=== PATIENT | male | born 1940 | race Two or more races ===

== ENCOUNTER → 2024-07-07 | Outpatient (CLI) | payer MEDICARE, OTHER, SELFPAY ==
[2024-07-07 11:28] LABS: Basophils % (Auto) 1 % (0-2.5); Eosinophils # (Auto) 0.2 Thou/mm3 (0.0-0.5); Eosinophils % (Auto) 4 % (0-10); Hematocrit 37.2 % (41.0-53.0); Hemoglobin 13.3 g/dL (13.5-16.0); Immature Granulocytes % (Auto) 1 % (0-0); Immature Granulocytes Auto 0.04 Thou/mm3 (0.00-0.00); Lymphocytes # (Auto) 0.9 Thou/mm3 (1.0-4.8); Lymphocytes % (Auto) 15 % (10-50); Mean Corpuscular HGB Conc 35.8 g/dl (31.0-37.0); Mean Corpuscular Hemoglobin 30.6 pg (25.0-35.0); Mean Corpuscular Volume 86 fL (80-100); Monocytes # (Auto) 0.5 Thou/mm3 (0.0-0.8); Monocytes % (Auto) 9 % (0-12); Neutrophils # (Auto) 3.9 Thou/mm3 (1.8-7.7); Neutrophils % (Auto) 71 % (37-80); Nucleated Red Blood Cell % 0 /100 WBC (0); Platelet Count 145 Thou/mm3 (140-440); RDW Standard Deviation 40.9 fL (35.1-43.9); Red Blood Count 4.34 Miln/mm3 (4.50-5.90); White Blood Count 5.5 Thou/mm3 (3.8-10.6)
[2024-07-07 11:37] LABS: Glucose Estimated Average 143 mg/dL (80-131); Hemoglobin A1C 6.6 % Hgb (4.8-6.0)
[2024-07-07 11:41] LABS: Albumin, Serum 4.2 gm/dL (3.4-4.8); Anion Gap 7 (7-16); BUN/Creatinine Ratio 19 Ratio (12-20); Blood Urea Nitrogen 13 mg/dL (9-23); Calcium 9.2 mg/dL (8.3-10.6); Calcium (Corrected) 9.2 mg/dL (8.5-10.1); Carbon Dioxide 31.3 mMol/L (20.0-31.0); Chloride 106 mMol/L (98-107); Cholesterol 112 mg/dL (132-200); Creatinine (Component) 0.7 mg/dL (0.6-1.3); Glucose 123 mg/dL (74-106); HDL Cholesterol 37 mg/dL (40-60); LDL Cholesterol,Calculated 57 mg/dL (0-130); Osmolality,Calculated 287 (275-295); Potassium 3.3 mMol/L (3.4-5.1); Sodium 144 mMol/L (136-145); Triglycerides 89 mg/dL (30-150); eGFR > 60 See Note
[2024-07-07 15:06] LABS: Collection Type, Urine Clean Catch
[2024-07-07 15:48] LABS: Creatinine MALB Rnd Ur 97 mg/dL (30-125); Microalbumin Creat Ratio 85 mg/gCrea (<30); Microalbumin, Random Urine 82 mg/L (0-300)
[2024-07-07 15:52] LABS: Bilirubin,Urine Negative (Negative); Blood,Urine Negative (Negative); Clarity,Urine Clear (Clear/Hazy); Color,Urine Yellow (Lt Yel-Yel); Glucose, Urine Negative (Negative); Ketones,Urine Negative (Negative); Leukocyte Esterase,Urine Negative (Negative); Nitrite,Urine Negative (Negative); Protein,Urine 1+ (Neg - Trace); RBC,Urine 3 /hpf (0-3); Specific Gravity,Urine 1.016 (1.001-1.035); Squamous Epithelial Cell,Urine 2 /hpf (0-5); WBC,Urine 2 /hpf (0-5)
== END | disposition home or self-care (01) ==
PROVIDERS: PCP Internal Medicine; Referring Provider Internal Medicine; Visit Provider Internal Medicine
DX: E11.9 Type 2 diabetes mellitus without complications (principal); I10 Essential (primary) hypertension; E78.5 Hyperlipidemia, unspecified
CPT/HCPCS: 36415; 80061; 80069; 81001; 82043; 82570; 83036; 85025

== ENCOUNTER 2024-09-07 08:34 | Emergency (ER) | payer MEDICARE, OTHER, SELFPAY ==
[2024-09-07 08:35] VITALS: BMI 25.8
[2024-09-07 08:44] VITALS: BP 103/65; PULSE 54; RESP 16; TEMP 36.7; O2SAT 94; BMI 25.8
--- NOTE | 2024-09-07 08:51 | XR_ITS ---
Examination: CT abdomen and pelvis without contrast. Coronal 3-D reconstructions. Sagittal 2-D reconstructions. Date and time of exam:September 07, 2024 0906 hours Comparison October 21, 2009 INDICATIONS: Burning abdominal pain with urination today CTDI: vol (mGy): 8.01 DLP: (mGycm): 500 Technique: Axial images of the abdomen have been obtained, 3 mm slice thickness Intravenous contrast material has not been administered. Low dose protocols were performed. One or more of the following dose reduction techniques were used; automated exposure control, adjustment of the mA and/or KV according to patient size, use of iterative reconstruction technique. Findings: No focal liver or splenic lesions No gallstones No pancreatic or adrenal mass Minimal perinephric stranding No renal or ureteral calculi, no hydronephrosis Normal appendix No bowel obstruction Colonic diverticulosis, no diverticulitis No bladder mass or bladder calculi Transverse prostate dimension 3.8 cm Small fat-containing inguinal hernias IMPRESSION: Minimal perinephric stranding, consider urinary tract infection Mild bilateral renal parenchymal scar formation No renal or ureteral calculi, no hydronephrosis Normal appendix No bladder mass or bladder calculi
--- NOTE | 2024-09-07 08:51 | PD.EDRME ---
Rapid Medical Screening Exam RME Arrival date/time: 09/07/24 08:34 84-year-old male presents to the emergency department today complaints of dysuria Chief Complaint: Urogenital-Male Vital signs: Vital Signs Temperature 98.0 F 09/07/24 08:44 Pulse Rate 54 L 09/07/24 08:44 Respiratory Rate 16 09/07/24 08:44 Blood Pressure 103/65 09/07/24 08:44 Pulse Oximetry (%) 94 L 09/07/24 08:44 Oxygen Delivery Method Room Air 09/07/24 08:44
[2024-09-07 09:39] LABS: Basophils % (Auto) 0 % (0-2.5); Eosinophils # (Auto) 0.1 Thou/mm3 (0.0-0.5); Eosinophils % (Auto) 1 % (0-10); Hematocrit 37.6 % (41.0-53.0); Hemoglobin 13.4 g/dL (13.5-16.0); Immature Granulocytes % (Auto) 0 % (0-0); Immature Granulocytes Auto 0.04 Thou/mm3 (0.00-0.00); Lymphocytes # (Auto) 0.7 Thou/mm3 (1.0-4.8); Lymphocytes % (Auto) 7 % (10-50); Mean Corpuscular HGB Conc 35.6 g/dl (31.0-37.0); Mean Corpuscular Hemoglobin 30.9 pg (25.0-35.0); Mean Corpuscular Volume 87 fL (80-100); Monocytes # (Auto) 0.6 Thou/mm3 (0.0-0.8); Monocytes % (Auto) 7 % (0-12); Neutrophils # (Auto) 7.9 Thou/mm3 (1.8-7.7); Neutrophils % (Auto) 85 % (37-80); Nucleated Red Blood Cell % 0 /100 WBC (0); Platelet Count 135 Thou/mm3 (140-440); RDW Standard Deviation 41.1 fL (35.1-43.9); Red Blood Count 4.34 Miln/mm3 (4.50-5.90); White Blood Count 9.4 Thou/mm3 (3.8-10.6)
[2024-09-07 10:11] LABS: Bacteria,Urine 4+; Bilirubin,Urine Negative (Negative); Blood,Urine 3+ (Negative); Collection Type, Urine Clean Catch; Glucose, Urine Negative (Negative); Ketones,Urine Negative (Negative); Leukocyte Esterase,Urine Positive (Negative); Nitrite,Urine Negative (Negative); Protein,Urine 2+ (Neg - Trace); RBC,Urine 137 /hpf (0-3); Specific Gravity,Urine 1.024 (1.001-1.035); Squamous Epithelial Cell,Urine 5 /hpf (0-5); WBC,Urine 1346 /hpf (0-5)
[2024-09-07 10:15] LABS: Alanine Aminotransferase 15 U/L (10-49); Albumin, Serum 4.1 gm/dL (3.4-4.8); Albumin/Globulin Ratio 2.2 (1.2-2.2); Alkaline Phosphatase 137 U/L (46-116); Anion Gap 9 (7-16); Aspartate Amino Transferase < 8 U/L (0-34); BUN/Creatinine Ratio 15 Ratio (12-20); Bilirubin,Total 2.1 mg/dL (0.3-1.2); Blood Urea Nitrogen 12 mg/dL (9-23); Calcium 9.1 mg/dL (8.3-10.6); Calcium (Corrected) 9.1 mg/dL (8.5-10.1); Carbon Dioxide 29.9 mMol/L (20.0-31.0); Chloride 105 mMol/L (98-107); Creatinine (Component) 0.8 mg/dL (0.6-1.3); Globulin 1.9 gm/dL (2.3-3.5); Glucose 144 mg/dL (74-106); Lipase 26 U/L (12-53); Osmolality,Calculated 289 (275-295); Potassium 3.3 mMol/L (3.4-5.1); Sodium 144 mMol/L (136-145); eGFR > 60 See Note
[2024-09-07 10:16] LABS: Clarity,Urine Turbid (Clear/Hazy); Color,Urine Amber (Lt Yel-Yel); Culture Indicated,Urine Yes
[2024-09-07 11:38] VITALS: BP 107/58; PULSE 52; RESP 16; TEMP 36.4; O2SAT 95
--- NOTE | 2024-09-07 13:57 | PD.EDADULT ---
ED General RME/HPI General Chief complaint: Urogenital-Male Stated complaint: Blood in urine X 2 days, painful urination Time Seen by Provider: 09/07/24 13:46 Arrival date/time: 09/07/24 08:34 CC: Burning with urination HPI ongoing for the past 3 days, the patient recently was finished 1 week of antibiotics secondary to tooth infection the antibiotic was amoxicillin. Family member states the patient denies fever chills chest pain shortness of breath or difficulty breathing. Patient is hard of hearing. Vital signs show the patient is afebrile nontoxic-appearing not in any acute distress at this time. RME / HPI RME / HPI narrative: 09/07/24 08:34 84-year-old male presents to the emergency department today complaints of dysuria Related Data Home Medications ?Medication ?Instructions ?Recorded ?Confirmed benazepril 40 mg tablet 40 mg PO QDAY 01/27/19 06/26/23 folic acid 1 mg tablet 1 mg PO QDAY 01/27/19 06/26/23 labetalol 300 mg tablet 300 mg PO DAILY 01/27/19 06/26/23 sertraline 50 mg tablet 100 mg PO HS 01/27/19 06/26/23 clopidogrel 75 mg tablet 75 mg PO QDAY 01/12/20 06/26/23 atorvastatin 40 mg tablet 40 mg PO HS 09/02/20 06/26/23 tamsulosin 0.4 mg capsule 0.4 mg PO QHS 02/08/21 06/26/23 aripiprazole 2 mg tablet (Abilify) 2 mg PO HS 07/30/22 06/26/23 aspirin 81 mg tablet,delayed 81 mg PO QDAY 07/30/22 06/26/23 release ferrous fumarate 456 mg (150 mg 456 mg PO QDAY 07/30/22 06/26/23 iron) tablet (Ferrimin 150) finasteride 5 mg tablet 5 mg PO QDAY 06/02/23 06/26/23 insulin glargine 100 unit/mL (3 20 unit subcut BID 06/26/23 06/26/23 mL) subcutaneous pen (Basaglar KwikPen U-100 Insulin) nifedipine 60 mg tablet,extended 60 mg PO QDAY 06/26/23 06/26/23 release Previous Rx's ?Medication ?Instructions ?Recorded pantoprazole 20 mg tablet,delayed 20 mg PO QDAY #30 tabs 09/08/20 release prednisone 10 mg tablet 10 mg PO QDAY #10 tabs 07/01/23 ciprofloxacin HCl 500 mg tablet 500 mg PO BID #14 tabs 09/07/24 (Cipro) Allergies Allergy/AdvReac Type Severity Reaction Status Date / Time thimerosal Allergy Intermediate Rash Verified 09/07/24 08:38 Review of Systems Review of Systems Narrative Review of Systems: GEN: No fever, no chills, no weight loss EYES: No discharge, no visual changes, no pain HEENT: No ear pain, no congestion, no sore throat PULM: No shortness of breath, no cough, no congestion CV: No chest pain, no dyspnea on exertion, no palpitations GI: No nausea, no vomiting, no diarrhea, no pain, no constipation : No frequency, no urgency, + dysuria MUSC/SKEL: No joint pain, no back pain SKIN: No rash PSYCH: No hallucinations, no depression HEME/LYMPH: No easy bleeding or bruising tendencies NEURO: No weakness, no headache Past Medical History Past Medical History NEUROLOGIC: Positive Neurological Disorders and Cerebrovascular Accident; Negative Seizures CARDIAC: Positive Cardiac Disorders, Hypercholesterolemia and Hypertension; Negative Congestive Heart Failure RESPIRATORY: Positive Asthma; Negative Chronic Obstructive Pulmonary Disease (COPD) GASTROINTESTINAL: Positive Gastrointestinal Disorders, Gastrointestinal Bleed (upper GI bleed) and Ulcer GENITOURINARY: Positive Genitourinary Disorders and Benign Prostatic Hyperplasia; Negative Renal Disease MUSCULOSKELETAL: Positive Musculoskeletal Disorders and Arthritis ENT: Positive Cataracts ENDOCRINE: Positive Endocrine Disorders and Diabetes Mellitus Type 2; Negative Diabetes Mellitus Type 1 HEMATOLOGIC: Negative Blood Disorders or Sickle Cell Disease OTHER HISTORY: Positive Falls, Chicken Pox, Measles, Mumps and Pertussis; Negative Autoimmune Disease, Shingles, Blood Transfusions, Blood Transfusion Reaction, Anesthesia Reactions or Cancer Family History FAMILY HISTORY: Positive Family Gastrointestinal Problems, Family Cancer and Family Surgery; Negative Family Psychiatric Problems, Family Respiratory Disorders, Family Cardiac Disorders or Family Anesthesia Reaction Surgical History SURGICAL: Positive Coronary Stent, Eye Surgery, Throat Surgery, Transurethral Resection and Vasectomy Social History SMOKING STATUS: Former smoker SECOND HAND EXPOSURE: No ED Exam Narrative Physical exam: [General: Not in any acute distress Head normocephalic HEENT: Within acceptable limits Neck is supple nontender Chest equal chest rise nontender to palpation Respiratory: Clear to auscultation no wheezes crackles or rubs CV: Rate rhythm is regular no murmurs rubs or clicks Abdomen is soft nontender no masses positive bowel sounds all 4 quadrants Back: No CVA tenderness no spinous process tenderness from cervical spine thoracic and lumbar spine Skin: Intact no petechiae rash induration ulceration or crepitus Extremities: Moving all extremity against resistance cap refill less than 2 seconds neurosensory intact Neuro: Awake alert oriented x2, person and place, Glascow coma 15 no focal deficits] Course Quality Measures none Orders Category Date Time Status CT abdomen pelvis wo con Stat Exams 09/07/24 08:51 Completed CBC Stat Lab 09/07/24 09:24 Completed Comprehensive Metabolic Panel Stat Lab 09/07/24 09:24 Completed Lipase Stat Lab 09/07/24 09:24 Completed UA, C/S IF [Urinalysis, C/S if Indicated] Stat Lab 09/07/24 08:51 Completed Urine Culture Stat Lab 09/07/24 08:51 Received cefTRIAXone [Rocephin] 1,000 mg Med 09/07/24 13:52 Discontinued Lidocaine 1% 20 ml [Xylocaine 1% 20 ML] 2.1 ml IM X1 Vital Signs Vital signs: Vital Signs Temperature 98.0 F 09/07/24 08:44 Pulse Rate 54 L 09/07/24 08:44 Respiratory Rate 16 09/07/24 08:44 Blood Pressure 103/65 09/07/24 08:44 Pulse Oximetry (%) 94 L 09/07/24 08:44 Oxygen Delivery Method Room Air 09/07/24 08:44 [facility] Patient data External records reviewed:: [facility] previous records Clinical information provided by:: patient and family Social determinants that could affect healthcare access:: none Patient has the following chronic illnesses:: Hypertension diabetes hyperlipidemia How is presenting disease/condition affected by chronic disease/condition?: uneffected by Evaluation data The following diagnostics were reviewed and interpreted by me:: lab results and radiology exam(s) Lab and/or radiology exams considered but not ordered:: CBC shows no acute leukocytosis anemia thrombocytopenia CBC shows no leukocytosis H&H of 13 and 37 with platelets at 135 CMP shows a potassium of 3.3 glucose of 144, no significant renal impairment a T. bili of 2.1 alk phos of 137 no other transaminitis Lipase is 26 Urine is grossly positive leukocyte Estrace positive WBCs at 1346 with 4+ bacteria. No other significant electrolyte imbalances Interpretation Summary: UTI Medications Medications considered but not ordered:: None Medication administrations:: Medication Administration History Discontinued Medications Ceftriaxone Sodium 1,000 mg/ (Lidocaine HCl 2.1 ml) 0 mg IM X1 ONE Stop: 09/07/24 13:53 None Consultations Consultation(s) initiated? (list below): No Diagnosis Differential Diagnosis ED Complaint MDM: UTI pyelonephritis cystitis Most likely diagnosis given after review of the tests above:: UTI Admission Indicated Admission indicated?: not indicated Explain why admission is indicated or not indicated:: Stable for outpatient follow-up Admission Request Was there a request for admission?: No Disposition Plan Disposition Plan: Discharge Discharge Attestation Discharge Attestation: The patient and all family members were given an opportunity to ask questions and understood the discharge instructions. Discharge instructions specifically effects, indications for sooner follow up or return to the emergency department, and the expected course of current diagnosis. Patient condition: Stable Medical Decision Making Differential Diagnosis Differential Diagnosis: UTI pyelonephritis cystitis Lab Data 09/07/24 09:24 09/07/24 09:24 Labs: Lab Results 09/07/24 09/07/24 Range/Units 08:51 09:24 WBC 9.4 (3.8-10.6) Thou/mm3 RBC 4.34 L (4.50-5.90) Miln/mm3 Hgb 13.4 L (13.5-16.0) g/dL Hct 37.6 L (41.0-53.0) % MCV 87 (80-100) fL MCH 30.9 (25.0-35.0) pg MCHC 35.6 (31.0-37.0) g/dl RDW Std Deviation 41.1 (35.1-43.9) fL Plt Count 135 L (140-440) Thou/mm3 Neut % (Auto) 85 H (37-80) % Lymph % (Auto) 7 L (10-50) % [place] % (Auto) 7 (0-12) % Eos % (Auto) 1 (0-10) % Baso % (Auto) 0 (0-2.5) % Neut # (Auto) 7.9 H (1.8-7.7) Thou/mm3 Lymph # (Auto) 0.7 L (1.0-4.8) Thou/mm3 [place] # (Auto) 0.6 (0.0-0.8) Thou/mm3 Eos # (Auto) 0.1 (0.0-0.5) Thou/mm3 Baso # (Auto) 0.0 (0.0-0.2) Thou/mm3 Immature Gran # (Auto) 0.04 H (0.00-0.00) Thou/mm3 Absolute Nucleated RBC 0.00 (0.00-0.00) Thou/mm3 Immature Gran % 0 (0-0) % Nucleated RBC % 0 (0) /100 WBC Sodium 144 (136-145) mMol/L Potassium 3.3 L (3.4-5.1) mMol/L Chloride 105 (98-107) mMol/L Carbon Dioxide 29.9 (20.0-31.0) mMol/L Anion Gap 9 (7-16) BUN 12 (9-23) mg/dL Creatinine 0.8 (0.6-1.3) mg/dL Estim Creat Clear Calc 70.0 (>60) mL/min eGFR > 60 (60 - ) See Note BUN/Creatinine Ratio 15 (12-20) Ratio Glucose 144 H (74-106) mg/dL Calculated Osmolality 289 (275-295) Calcium 9.1 (8.3-10.6) mg/dL Corrected Calcium 9.1 (8.5-10.1) mg/dL Total Bilirubin 2.1 H (0.3-1.2) mg/dL AST < 8 (0-34) U/L ALT 15 (10-49) U/L Alkaline Phosphatase 137 H (46-116) U/L Total Protein 6.0 (5.7-8.2) gm/dL Albumin 4.1 (3.4-4.8) gm/dL Globulin 1.9 L (2.3-3.5) gm/dL Albumin/Globulin Ratio 2.2 (1.2-2.2) Lipase 26 (12-53) U/L Ur Collection Type Clean Catch Urine Color Marlene (Lt Yel-Yel) Urine Clarity Turbid A (Clear/Hazy) Urine pH 6.0 (5.0-7.0) Ur Specific [place] 1.024 (1.001-1.035) Urine Protein 2+ A (Neg - Trace) Urine Glucose (UA) Negative (Negative) Urine Ketones Negative (Negative) Urine Blood 3+ A (Negative) Urine Nitrite Negative (Negative) Urine Bilirubin Negative (Negative) Urine Urobilinogen (Auto) 4.0 (0.0-1.0) mg/dL Ur Leukocyte Esterase Positive (Negative) Urine RBC 137 H (0-3) /hpf Urine WBC 1346 H (0-5) /hpf Ur Squamous Epith Cells 5 (0-5) /hpf Urine Bacteria 4+ A (None) Ur Culture Indicated? Yes Discharge Plan Plan Patient Disposition: HOME (Self Care) Patient condition on transfer: Stable Prescriptions/Referrals Prescriptions/Med Rec: New ciprofloxacin HCl [Cipro] 500 mg tablet 500 mg PO BID Qty: 14 0RF No Action tamsulosin 0.4 mg capsule 0.4 mg PO QHS aspirin 81 mg tablet,delayed release (DR/EC) 81 mg PO QDAY aripiprazole [Abilify] 2 mg tablet 2 mg PO HS Ferrimin 150 456 mg (150 mg iron) tablet 456 mg PO QDAY finasteride 5 mg tablet 5 mg PO QDAY clopidogrel 75 mg Tablet 75 mg PO QDAY atorvastatin 40 mg Tablet 40 mg PO HS pantoprazole 20 mg tablet,delayed release (DR/EC) 20 mg PO QDAY Qty: 30 0RF benazepril 40 mg Tablet 40 mg PO QDAY folic acid 1 mg Tablet 1 mg PO QDAY labetalol 300 mg Tablet 300 mg PO DAILY sertraline 50 mg Tablet 100 mg PO HS Rx Instructions: 2 TABS PO HS nifedipine 60 mg Tablet Extended Release 60 mg PO QDAY insulin glargine [Basaglar KwikPen U-100 Insulin] 100 unit/mL (3 mL) insulin pen 20 unit SUBCUT BID Patient Comments: INJECT 25UNIS SUBCUTANEOUSLY TWICE A DAY prednisone 10 mg tablet 10 mg PO QDAY Qty: 10 0RF Rx Instructions: administer with food or milk Referrals: No Primary/Family,Physician [Primary Care Provider] - In 1 week Problem List Clinical Impression: UTI (urinary tract infection) Patient/Caregiver Discharge Instructions Education Materials: ED Bladder Infection, Male (Adult) Print Language: Bahamian Stand Alone Forms: Judy Award Info., Patient Portal Info Letter, Work/School Release PA/BARTACKER Supervising Physician PA/BARTACKER Supervising Physician: Jermaine Arango ENP
[2024-09-07 14:11] VITALS: BP 120/67; PULSE 54; RESP 16; TEMP 36.6; O2SAT 97
[2024-09-07] MEDS: cefTRIAXone 1,000 MG, LIDOCAINE 1% 20 ML 2.1 ML IM (14:12)
== END 2024-09-07 14:43 | disposition home or self-care (01) ==
PROVIDERS: Nurse Practitioner Primary Care; Emergency Provider Internal Medicine Cardiovascular Disease
DX: N39.0 Urinary tract infection, site not specified (principal)
CPT/HCPCS: 36415; 74176; 80053; 81001; 83690; 85025; 87077; 87086; 87186; 96372; 99284; J0696; J3490

== ENCOUNTER → 2024-11-03 | Outpatient (CLI) | payer MEDICARE, OTHER, SELFPAY ==
[2024-11-03 10:37] LABS: Basophils % (Auto) 0 % (0-2.5); Eosinophils # (Auto) 0.2 Thou/mm3 (0.0-0.5); Eosinophils % (Auto) 2 % (0-10); Hematocrit 38.3 % (41.0-53.0); Hemoglobin 13.5 g/dL (13.5-16.0); Immature Granulocytes % (Auto) 0 % (0-0); Immature Granulocytes Auto 0.03 Thou/mm3 (0.00-0.00); Lymphocytes # (Auto) 0.6 Thou/mm3 (1.0-4.8); Lymphocytes % (Auto) 9 % (10-50); Mean Corpuscular HGB Conc 35.2 g/dl (31.0-37.0); Mean Corpuscular Hemoglobin 30.4 pg (25.0-35.0); Mean Corpuscular Volume 86 fL (80-100); Monocytes # (Auto) 0.5 Thou/mm3 (0.0-0.8); Monocytes % (Auto) 7 % (0-12); Neutrophils % (Auto) 81 % (37-80); Nucleated Red Blood Cell % 0 /100 WBC (0); Platelet Count 150 Thou/mm3 (140-440); RDW Standard Deviation 41.1 fL (35.1-43.9); Red Blood Count 4.44 Miln/mm3 (4.50-5.90); White Blood Count 7.3 Thou/mm3 (3.8-10.6)
[2024-11-03 10:54] LABS: Albumin, Serum 4.2 gm/dL (3.4-4.8); Anion Gap 9 (7-16); BUN/Creatinine Ratio 23 Ratio (12-20); Blood Urea Nitrogen 18 mg/dL (9-23); Calcium 8.8 mg/dL (8.3-10.6); Calcium (Corrected) 8.8 mg/dL (8.5-10.1); Carbon Dioxide 29.3 mMol/L (20.0-31.0); Cardiac Risk Estimate 3.2 RATIO (4.0-6.7); Chloride 110 mMol/L (98-107); Cholesterol 100 mg/dL (132-200); Creatinine (Component) 0.8 mg/dL (0.6-1.3); Glucose 187 mg/dL (74-106); Glucose Estimated Average 143 mg/dL (80-131); HDL Cholesterol 31 mg/dL (40-60); Hemoglobin A1C 6.6 % Hgb (4.8-6.0); LDL Cholesterol,Calculated 53 mg/dL (0-130); Osmolality,Calculated 301 (275-295); Potassium 3.3 mMol/L (3.4-5.1); Sodium 148 mMol/L (136-145); Thyroid Stimulating Hormone 1.33 uIU/mL (0.55-4.78); Triglycerides 79 mg/dL (30-150); eGFR > 60 See Note
[2024-11-03 10:57] LABS: Collection Type, Urine Clean Catch
[2024-11-03 11:33] LABS: Bilirubin,Urine Negative (Negative); Blood,Urine Negative (Negative); Clarity,Urine Clear (Clear/Hazy); Color,Urine Yellow (Lt Yel-Yel); Glucose, Urine 1+ (Negative); Ketones,Urine Negative (Negative); Leukocyte Esterase,Urine Positive (Negative); Nitrite,Urine Negative (Negative); PH,Urine 6.5 (5.0-7.0); Protein,Urine 1+ (Neg - Trace); RBC,Urine 4 /hpf (0-3); Specific Gravity,Urine 1.024 (1.001-1.035); Squamous Epithelial Cell,Urine 6 /hpf (0-5); WBC,Urine 3 /hpf (0-5)
[2024-11-03 11:47] LABS: Creatinine MALB Rnd Ur 110 mg/dL (30-125); Microalbumin Creat Ratio 141 mg/gCrea (<30); Microalbumin, Random Urine 155 mg/L (0-300)
== END | disposition home or self-care (01) ==
LOC: COPL 08:59
PROVIDERS: PCP Internal Medicine; Referring Provider Internal Medicine; Visit Provider Internal Medicine
DX: E11.9 Type 2 diabetes mellitus without complications (principal); I10 Essential (primary) hypertension; E78.5 Hyperlipidemia, unspecified
CPT/HCPCS: 36415; 80061; 80069; 81001; 82043; 82570; 83036; 84443; 85025

== ENCOUNTER 2024-11-11 06:30 | Inpatient (IN) | payer MEDICARE, OTHER, SELFPAY ==
[2024-11-11] VITALS (23 sets, daily range): BP systolic 137–183; BP diastolic 58–97; PULSE 58–65; RESP 12–95; TEMP 36.1–37.4; O2SAT 94–97; BMI 26.5
--- NOTE | 2024-11-11 06:59 | PD.EDSKIN ---
ED Skin Abcess FB-RME/HPI General Chief complaint: Skin/Abscess/Foreign Body Stated complaint: SENT BY DR. CHRISTOPHER [facility] Time Seen by Provider: 11/11/24 06:37 Source: patient Arrival date/time: 11/11/24 06:30 84-year-old male with a history of hyperlipidemia, type 2 diabetes presents to the emergency room with a chief complaint of an abscess to his mid back x 1 week Mode of arrival: ambulatory Limitations: no limitations Related Data Home Medications ?Medication ?Instructions ?Recorded ?Confirmed benazepril 40 mg tablet 40 mg PO QDAY 01/27/19 06/26/23 folic acid 1 mg tablet 1 mg PO QDAY 01/27/19 06/26/23 labetalol 300 mg tablet 300 mg PO DAILY 01/27/19 06/26/23 sertraline 50 mg tablet 100 mg PO HS 01/27/19 06/26/23 clopidogrel 75 mg tablet 75 mg PO QDAY 01/12/20 06/26/23 atorvastatin 40 mg tablet 40 mg PO HS 09/02/20 06/26/23 tamsulosin 0.4 mg capsule 0.4 mg PO QHS 02/08/21 06/26/23 aripiprazole 2 mg tablet (Abilify) 2 mg PO HS 07/30/22 06/26/23 aspirin 81 mg tablet,delayed 81 mg PO QDAY 07/30/22 06/26/23 release ferrous fumarate 456 mg (150 mg 456 mg PO QDAY 07/30/22 06/26/23 iron) tablet (Ferrimin 150) finasteride 5 mg tablet 5 mg PO QDAY 06/02/23 06/26/23 insulin glargine 100 unit/mL (3 20 unit subcut BID 06/26/23 06/26/23 mL) subcutaneous pen (Basaglar KwikPen U-100 Insulin) nifedipine 60 mg tablet,extended 60 mg PO QDAY 06/26/23 06/26/23 release Previous Rx's ?Medication ?Instructions ?Recorded pantoprazole 20 mg tablet,delayed 20 mg PO QDAY #30 tabs 09/08/20 release prednisone 10 mg tablet 10 mg PO QDAY #10 tabs 07/01/23 ciprofloxacin HCl 500 mg tablet 500 mg PO BID #14 tabs 09/07/24 (Cipro) Allergies Allergy/AdvReac Type Severity Reaction Status Date / Time thimerosal Allergy Intermediate Rash Verified 11/11/24 06:34 Review of Systems Review of Systems Systems Reviewed: All systems reviewed, normal except as documented Constitutional Constitutional: Reports system reviewed and no additional complaints, except as documented, Denies fatigue, Denies fever(s), Denies headache(s) and Denies weakness Eyes Eyes: Reports system reviewed and no additional complaints, except as documented, Denies blurry vision and Denies change in vision ENT Ears, Nose, Mouth, and Throat: Reports system reviewed and no additional complaints, except as documented, Denies otalgia, Denies headache(s), Denies nasal congestion, Denies throat swelling and Denies vertigo Cardiovascular Cardiovascular: Reports system reviewed and no additional complaints, except as documented, Denies chest pain, Denies dyspnea and Denies dyspnea on exertion Respiratory Respiratory: Reports system reviewed and no additional complaints, except as documented, Denies chest congestion, Denies cough, Denies dyspnea, Denies dyspnea on exertion and Denies wheezing Gastrointestinal Gastrointestinal: Reports system reviewed and no additional complaints, except as documented, Denies abdominal pain, Denies cramping, Denies nausea and Denies vomiting Genitourinary Genitourinary: Reports system reviewed and no additional complaints, except as documented, Denies dysuria and Denies hematuria Musculoskeletal Musculoskeletal: Reports system reviewed and no additional complaints, except as documented and Denies back pain Integumentary/Breasts Skin/Breast: Reports system reviewed and no additional complaints, except as documented, Reports erythema, Reports furuncle and Denies wounds Neurologic Neurologic: Reports system reviewed and no additional complaints, except as documented, Denies confusion, Denies headache(s), Denies lack of coordination, Denies vertigo and Denies weakness Psychiatric Psychiatric: Reports system reviewed and no additional complaints, except as documented, Denies anxiety, Denies confusion, Denies depression, Denies paranoia, Denies suicidal ideation and Denies tactile hallucinations Endocrine Endocrine: Reports system reviewed and no additional complaints, except as documented and Denies fatigue Hematologic/Lymphatic Hematologic/Lymphatic: Reports system reviewed and no additional complaints, except as documented and Denies lymphadenopathy Allergic/Immunologic Allergic/Immunologic: Reports system reviewed and no additional complaints, except as documented, Denies throat swelling, Denies urticaria and Denies wheezing ED Exam General Limitations: Present no limitations General appearance: Present alert and in no apparent distress Head Head exam: Present atraumatic Eye Eye exam: Present normal appearance, PERRL and EOMI ENT ENT exam: Present normal exam, normal oropharynx and mucous membranes moist Neck Neck exam: Present normal inspection, full ROM and trachea midline Chest Chest inspection: Present normal inspection and symmetric chest wall rise Respiratory Respiratory exam: Present normal lung sounds bilaterally Cardiovascular Cardiovascular exam: Present regular rate, normal rhythm and normal heart sounds Abdominal Exam Abdominal exam: Present soft and normal bowel sounds Extremities Exam Extremities exam: Present normal inspection and full ROM Back Exam Back exam: Present normal inspection and full ROM Back 1 view image:  1. Cellulitis, erythema, warmth abscess to the center of his back Neurological Exam Neurological exam: Present alert, oriented X3 and CN II-XII intact Psychiatric Psychiatric exam: Present normal affect and normal mood Skin Skin exam: Present warm, dry, intact and normal color Course Quality Measures none Orders Category Date Time Status Admit to Inpatient Status Routine Admission 11/11/24 07:07 Active Patient Condition Routine Admission 11/11/24 07:07 Ordered EKG (ED ONLY) *Do not use* NOW Care 11/11/24 06:55 Active Insert IV STAT Care 11/11/24 06:55 Active Notify provider NEEDED Care 11/11/24 07:07 Active Consult to General Surgery Stat Cons 11/11/24 07:14 Ordered EKG (ED Only) Stat Exams 11/11/24 06:55 Ordered CBC Stat Lab 11/11/24 06:55 Ordered CMP [Comprehensive Metabolic Panel] Stat Lab 11/11/24 06:55 Ordered Clindamycin/Ns 600 mg Ivpb [Cleocin/Ns Ivpb] Med 11/11/24 06:56 Active 600 mg in 50 ml IV X1 Code Status Routine Oth 11/11/24 07:07 Ordered Vital Signs Vital signs: Vital Signs Temperature 97.9 F 11/11/24 06:42 Pulse Rate 61 11/11/24 06:42 Respiratory Rate 17 11/11/24 06:42 Blood Pressure 153/76 H 11/11/24 06:42 Pulse Oximetry (%) 96 11/11/24 06:42 Oxygen Delivery Method Room Air 11/11/24 06:42 Skin / Abscess / Foreign Body MDM Narrative MDM Narrative:: 84-year-old male with a history of hyperlipidemia, type 2 diabetes presents to the emergency room with a chief complaint of an abscess to his mid back x 1 week Patient is hemodynamically stable and in no apparent distress he is afebrile not tachycardic and not tachypneic Physical examination shows a 6 cm, erythemic, warm to the touch, area to the center of his back. Patient's states that she was seen by Dr Garcia the general surgeon yesterday and was told to come to the emergency room today. I spoke to Dr Garcia on the phone and he will take him to the OR in 45 minutes. I spoke to the hospitalist group and they will admit him. Patient data External records reviewed:: [facility] previous records Clinical information provided by:: patient Social determinants that could affect healthcare access:: none Patient has the following chronic illnesses:: Type 2 diabetes, hypertension How is presenting disease/condition affected by chronic disease/condition?: exacerbated by Evaluation data The following diagnostics were reviewed and interpreted by me:: lab results and radiology exam(s) Lab and/or radiology exams considered but not ordered:: Labs and radiology exams considered and ordered Interpretation Summary: N/A Medications / Prescriptions Medications or Prescriptions considered but not ordered:: Medication given Medication administrations:: Medication Administration History Clindamycin/Sodium Chloride (Cleocin/Ns Ivpb) 600 mg in 50 mls @ 100 mls/hr IV X1 ONE Stop: 11/11/24 07:25 Medication given Consultations Consultation(s) initiated? (list below): Yes Consultation #1 (Physician, Specialty, Details): Dr Garcia Time: 07:00 Diagnosis Skin/Abscess Differential Diagnosis: abscess of skin or subcutaneous tissue, cellulitis and contact dermatitis Most likely diagnosis given after review of the tests above:: Cellulitis Admission Indicated Admission indicated?: not indicated Admission Request Was there a request for admission?: No Disposition Plan Disposition Plan: Discharge Discharge Attestation Discharge Attestation: The patient and all family members were given an opportunity to ask questions and understood the discharge instructions. Discharge instructions specifically effects, indications for sooner follow up or return to the emergency department, and the expected course of current diagnosis. Patient condition: Stable Discharge Plan Plan Patient Disposition: Admit Acute Care w/in Hospital Disposition Comment: Stable Prescriptions/Referrals Prescriptions/Med Rec: No Action tamsulosin 0.4 mg capsule 0.4 mg PO QHS aspirin 81 mg tablet,delayed release (DR/EC) 81 mg PO QDAY aripiprazole [Abilify] 2 mg tablet 2 mg PO HS Ferrimin 150 456 mg (150 mg iron) tablet 456 mg PO QDAY finasteride 5 mg tablet 5 mg PO QDAY clopidogrel 75 mg Tablet 75 mg PO QDAY atorvastatin 40 mg Tablet 40 mg PO HS pantoprazole 20 mg tablet,delayed release (DR/EC) 20 mg PO QDAY Qty: 30 0RF benazepril 40 mg Tablet 40 mg PO QDAY folic acid 1 mg Tablet 1 mg PO QDAY labetalol 300 mg Tablet 300 mg PO DAILY sertraline 50 mg Tablet 100 mg PO HS Rx Instructions: 2 TABS PO HS nifedipine 60 mg Tablet Extended Release 60 mg PO QDAY insulin glargine [Basaglar KwikPen U-100 Insulin] 100 unit/mL (3 mL) insulin pen 20 unit SUBCUT BID Patient Comments: INJECT 25UNIS SUBCUTANEOUSLY TWICE A DAY prednisone 10 mg tablet 10 mg PO QDAY Qty: 10 0RF Rx Instructions: administer with food or milk ciprofloxacin HCl [Cipro] 500 mg tablet 500 mg PO BID Qty: 14 0RF Problem List Clinical Impression: Cellulitis, Abscess of skin or subcutaneous tissue Patient/Caregiver Discharge Instructions Print Language: [place]an Stand Alone Forms: Judy Award Info., Patient Portal Info Letter
[2024-11-11 07:36] LABS: Basophils % (Auto) 0 % (0-2.5); Eosinophils # (Auto) 0.2 Thou/mm3 (0.0-0.5); Eosinophils % (Auto) 3 % (0-10); Hematocrit 38.5 % (41.0-53.0); Hemoglobin 13.3 g/dL (13.5-16.0); Immature Granulocytes % (Auto) 1 % (0-0); Immature Granulocytes Auto 0.04 Thou/mm3 (0.00-0.00); Lymphocytes # (Auto) 0.5 Thou/mm3 (1.0-4.8); Lymphocytes % (Auto) 7 % (10-50); Mean Corpuscular HGB Conc 34.5 g/dl (31.0-37.0); Mean Corpuscular Hemoglobin 30.4 pg (25.0-35.0); Mean Corpuscular Volume 88 fL (80-100); Monocytes # (Auto) 0.5 Thou/mm3 (0.0-0.8); Monocytes % (Auto) 7 % (0-12); Neutrophils # (Auto) 5.8 Thou/mm3 (1.8-7.7); Neutrophils % (Auto) 82 % (37-80); Nucleated Red Blood Cell % 0 /100 WBC (0); Platelet Count 156 Thou/mm3 (140-440); RDW Standard Deviation 41.8 fL (35.1-43.9); Red Blood Count 4.38 Miln/mm3 (4.50-5.90); White Blood Count 7.1 Thou/mm3 (3.8-10.6)
[2024-11-11 08:11] LABS: Alanine Aminotransferase 25 U/L (10-49); Albumin, Serum 4.1 gm/dL (3.4-4.8); Alkaline Phosphatase 179 U/L (46-116); Anion Gap 9 (7-16); Aspartate Amino Transferase 17 U/L (0-34); BUN/Creatinine Ratio 20 Ratio (12-20); Blood Urea Nitrogen 12 mg/dL (9-23); Calcium 8.7 mg/dL (8.3-10.6); Calcium (Corrected) 8.7 mg/dL (8.5-10.1); Carbon Dioxide 25.6 mMol/L (20.0-31.0); Chloride 107 mMol/L (98-107); Creatinine (Component) 0.6 mg/dL (0.6-1.3); Estimated Creatinine Clearance 96.3 mL/min (>60); Globulin 2.1 gm/dL (2.3-3.5); Glucose 177 mg/dL (74-106); Osmolality,Calculated 286 (275-295); Potassium 3.7 mMol/L (3.4-5.1); Sodium 142 mMol/L (136-145); Total Protein 6.2 gm/dL (5.7-8.2); eGFR > 60 See Note
--- NOTE | 2024-11-11 08:33 | PD.RESEVENT ---
Documentation for date of: 11/11/24 Event Note Event Note: Hospitalist team received a call from Dr. Schofield's team regarding transition of care of this patient to them as Dr. Schofield is a PCP. Basic admission orders were placed by hospitalist team already. Dr. Schofield and her team will place the rest of the orders and do H&P. Handoff was given to her team. Plan of care discussed with attending Dr. Anaya. Leif Lord MD, PGY 2. Disclaimer: This note was dictated by speech recognition. Minor errors in department supervisor may be present due to voice recognition software.
--- NOTE | 2024-11-11 08:37 | PD.SURCONS ---
HPI Consult details Consult date: 11/11/24 Reason for consultation narrative: Cellulitis and abscess of back History of present illness: 84-year-old male with history of diabetes, hypertension, hyperlipidemia, BPH, CAD status post stent placement on Plavix was seen in my office yesterday for abscess and cellulitis of his back that has been getting progressively worse over the past week. He denies nausea, vomiting, fever or chills. He also denies history of trauma, insect or spider bites. Patient and family were advised to go to the emergency department yesterday, they elected to present to the ER this morning. Review of Systems Constitutional Constitutional: Denies headache(s) and Denies weakness ENT Ears, Nose, Mouth, and Throat: Denies headache(s) and Denies vertigo Neurologic Neurologic: Reports system reviewed and no additional complaints, except as documented, Denies confusion, Denies headache(s), Denies lack of coordination, Denies vertigo and Denies weakness Psychiatric Psychiatric: Denies confusion Meds Home Medications and Allergies Home Medications ?Medication ?Instructions ?Recorded ?Confirmed ?Type benazepril 40 mg tablet 40 mg PO QDAY 01/27/19 06/26/23 History folic acid 1 mg tablet 1 mg PO QDAY 01/27/19 06/26/23 History labetalol 300 mg tablet 300 mg PO DAILY 01/27/19 06/26/23 History sertraline 50 mg tablet 100 mg PO HS 01/27/19 06/26/23 History clopidogrel 75 mg tablet 75 mg PO QDAY 01/12/20 06/26/23 History atorvastatin 40 mg tablet 40 mg PO HS 09/02/20 06/26/23 History tamsulosin 0.4 mg capsule 0.4 mg PO QHS 02/08/21 06/26/23 History aripiprazole 2 mg tablet (Abilify) 2 mg PO HS 07/30/22 06/26/23 History aspirin 81 mg tablet,delayed 81 mg PO QDAY 07/30/22 06/26/23 History release ferrous fumarate 456 mg (150 mg 456 mg PO QDAY 07/30/22 06/26/23 History iron) tablet (Ferrimin 150) finasteride 5 mg tablet 5 mg PO QDAY 06/02/23 06/26/23 History insulin glargine 100 unit/mL (3 20 unit subcut BID 06/26/23 06/26/23 History mL) subcutaneous pen (Basaglar KwikPen U-100 Insulin) nifedipine 60 mg tablet,extended 60 mg PO QDAY 06/26/23 06/26/23 History release Allergies Allergy/AdvReac Type Severity Reaction Status Date / Time thimerosal Allergy Intermediate Rash Verified 11/11/24 06:34 Exam Vital Signs Temp Pulse Resp BP Pulse Ox O2 Del Method 97.9 F 61 17 153/76 H 96 Room Air 11/11/24 06:42 11/11/24 06:42 11/11/24 06:42 11/11/24 06:42 11/11/24 06:42 11/11/24 06:42 Constitutional Constitutional: no acute distress Routine Back/Spine/Pelvis Exam Comments: Significant cellulitis and large abscess of mid back Assessment & Plan Additional Assessment Additional comments: Cellulitis and abscess of back Plan Patient was started on IV antibiotics. Patient will be taken to the operating room for incision and drainage of back abscess. Risks include but not limited to infection, bleeding, chronic nonhealing wound, need for further procedure and or operation discussed with the patient and his . Benefits alternatives explained to them, all their questions answered, they agreed and consented to proceed with the operation.
--- NOTE | 2024-11-11 09:18 | PD.RESHP ---
Documentation for date of: 11/11/24 HPI History of Present Illness Chief complaint: cellultis of mid back History of present illness: This Patient is a 83-year-old male with past medical history of CVA, CAD s/p stents, hypertension, type 2 diabetes, previous upper GI bleed, BPH presented on 10/2424 due to swelling and pain in mid back due to wound/cellulitis with abscess formation. Patient's was present at the bedside in recovery room post op when the history was taken. She reported that patient had this initially seen in July which was initially tiny and slowly increased in size with formation of abscess and became extremely painful. Patient took antibiotics however failed to improve with them. Patient was seen by human resource consultant, Dr Schofield as outpatient last week when she recommended to follow-up with surgeon, Dr Garcia for incision and drainage. Patient was seen yesterday by Dr. Garcia, surgeon at his clinic and was sent to the ED this morning to be admitted for I&D. Patient denied any fever chills, headache, dizziness, abdominal discomfort, difficulty in urination or any other complaint. In the ED, patient was slightly hypertensive, had regular pulse, afebrile and saturating well on room air. Labs were significant for normocytic anemia with hemoglobin at 13.3. CHEM panel was unremarkable with electrolytes within normal limits. Kidney functions were stable with BUN 12 and creatinine 0.6. GFR more than 60%. Blood glucose 177. Liver enzymes unremarkable. Surgery was consulted and patient was taken to the OR for I&D. Patient was given clindamycin x 1 in the ED. PMH: As above PSH: Cholecystectomy, esophageal stricture dilation x 2, stents placement Allergies: Thimerosal SH: Quit smoking 30 years ago. Denies drinking alcohol. No history of illicit drug use Home medications: Aspirin 81 mg, Plavix 75 mg, atorvastatin 40 mg, aripiprazole 2 mg, finasteride 5 mg, tamsulosin 0.4 mg, pantoprazole 20 mg, labetalol 300 mg twice daily and benazepril 40 mg Patient is admitted for further workup and management of cellulitis with abscess formation mid back post I&D. Review of Systems Review of Systems Systems Reviewed: All systems reviewed, normal except as documented Past Medical History Past Medical History NEUROLOGIC: Positive Neurological Disorders and Cerebrovascular Accident; Negative Seizures CARDIAC: Positive Cardiac Disorders, Hypercholesterolemia and Hypertension; Negative Congestive Heart Failure RESPIRATORY: Positive Asthma; Negative Chronic Obstructive Pulmonary Disease (COPD) GASTROINTESTINAL: Positive Gastrointestinal Disorders, Gastrointestinal Bleed (upper GI bleed) and Ulcer GENITOURINARY: Positive Genitourinary Disorders and Benign Prostatic Hyperplasia; Negative Renal Disease MUSCULOSKELETAL: Positive Musculoskeletal Disorders and Arthritis ENT: Positive Cataracts ENDOCRINE: Positive Endocrine Disorders and Diabetes Mellitus Type 2; Negative Diabetes Mellitus Type 1 HEMATOLOGIC: Negative Blood Disorders or Sickle Cell Disease OTHER HISTORY: Positive Falls, Chicken Pox, Measles, Mumps and Pertussis; Negative Autoimmune Disease, Shingles, Blood Transfusions, Blood Transfusion Reaction, Anesthesia Reactions or Cancer Family History FAMILY HISTORY: Positive Family Gastrointestinal Problems, Family Cancer and Family Surgery; Negative Family Psychiatric Problems, Family Respiratory Disorders, Family Cardiac Disorders or Family Anesthesia Reaction Surgical History SURGICAL: Positive Coronary Stent, Eye Surgery, Throat Surgery, Transurethral Resection and Vasectomy Social History SMOKING STATUS: Former smoker SECOND HAND EXPOSURE: No Exam Vital Signs Temp Pulse Resp BP Pulse Ox O2 Del Method 97.9 F 61 17 153/76 H 96 Room Air 11/11/24 06:42 11/11/24 06:42 11/11/24 06:42 11/11/24 06:42 11/11/24 06:42 11/11/24 06:42 Narrative Exam GENERAL APPEARANCE:Elderly male in no acute distress. HEENT: NC, AT. MMM. EOMI, clear conjunctiva, oropharynx clear. NECK: Supple without lymphadenopathy. No stiffness or restricted ROM. HEART: Regular rate and regular rhythm, normal S1/S2, no m/r/g LUNGS: CTAB, moving air well. No crackles or wheezes are heard. ABDOMEN: Soft, nontender, nondistended with good bowel sounds heard. BACK: around 2x2 cm wound tender black in colour with well defined margins carbuncle on mid back EXTREMITIES: Without cyanosis, clubbing or edema. NEUROLOGICAL: Grossly nonfocal. Alert and oriented x 3, moving all 4 extremities. CN not formally tested but appear grossly intact. Skin: Warm and dry without any rash. Results: Labs 11/11/24 07:23 11/11/24 07:23 Labs: Short CBC 11/11/24 Range/Units 07:23 WBC 7.1 (3.8-10.6) Thou/mm3 Hgb 13.3 L (13.5-16.0) g/dL Hct 38.5 L (41.0-53.0) % Plt Count 156 (140-440) Thou/mm3 BMP 11/11/24 07:23 Sodium 142 Potassium 3.7 Chloride 107 Carbon Dioxide 25.6 BUN 12 Creatinine 0.6 Glucose 177 H Calcium 8.7 Liver Function 11/11/24 Range/Units 07:23 Total Bilirubin 1.0 (0.3-1.2) mg/dL AST 17 (0-34) U/L ALT 25 (10-49) U/L Alkaline Phosphatase 179 H (46-116) U/L Albumin 4.1 (3.4-4.8) gm/dL Quality Measures Quality Measures VTE prophylaxis Advance care planning discussed with:: patient Medications Home Medications and Allergies Home Medications ?Medication ?Instructions ?Recorded ?Confirmed ?Type benazepril 40 mg tablet 40 mg PO QDAY 01/27/19 06/26/23 History folic acid 1 mg tablet 1 mg PO QDAY 01/27/19 06/26/23 History labetalol 300 mg tablet 300 mg PO DAILY 01/27/19 06/26/23 History sertraline 50 mg tablet 100 mg PO HS 01/27/19 06/26/23 History clopidogrel 75 mg tablet 75 mg PO QDAY 01/12/20 06/26/23 History atorvastatin 40 mg tablet 40 mg PO HS 09/02/20 06/26/23 History tamsulosin 0.4 mg capsule 0.4 mg PO QHS 02/08/21 06/26/23 History aripiprazole 2 mg tablet (Abilify) 2 mg PO HS 07/30/22 06/26/23 History aspirin 81 mg tablet,delayed 81 mg PO QDAY 07/30/22 06/26/23 History release ferrous fumarate 456 mg (150 mg 456 mg PO QDAY 07/30/22 06/26/23 History iron) tablet (Ferrimin 150) finasteride 5 mg tablet 5 mg PO QDAY 06/02/23 06/26/23 History insulin glargine 100 unit/mL (3 20 unit subcut BID 06/26/23 06/26/23 History mL) subcutaneous pen (Basaglar KwikPen U-100 Insulin) nifedipine 60 mg tablet,extended 60 mg PO QDAY 06/26/23 06/26/23 History release Allergies Allergy/AdvReac Type Severity Reaction Status Date / Time thimerosal Allergy Intermediate Rash Verified 11/11/24 06:34 Visit Medications Acetaminophen (Acetaminophen 325 Mg Tablet) 650 mg PO Q6H PRN PRN Reason: Fever >100.4 or pain Stop: 12/11/24 08:50 Acetaminophen (Acetaminophen 325 Mg Tablet) 650 mg PO Q6H PRN PRN Reason: PAIN SCALE 1-3 (mild Stop: 12/11/24 08:50 Hydrocodone Bitart/Acetaminophen (Hydrocodone/Apap 5/325 Tablet) 1 tab PO Q4HR PRN PRN Reason: PAIN SCALE 4-6 (Moderate Stop: 11/16/24 08:50 Aripiprazole (Aripiprazole 5 Mg Tablet) 2 mg PO HS VERONICA Stop: 12/11/24 20:59 Aspirin (Aspirin Ec 81 Mg Tabec) 81 mg PO QDAY VERONICA Stop: 12/12/24 08:59 Atorvastatin Calcium (Atorvastatin Calcium 20 Mg Tablet) 40 mg PO HS VERONICA Stop: 12/11/24 20:59 Clopidogrel Bisulfate (Clopidogrel Bisulfate 75 Mg Tablet) 75 mg PO QDAY [facility] Stop: 12/12/24 08:59 Dextrose (Dextrose 50%-Water Inj 50 Ml Syringe) 25 ml IV Q15MIN PRN PRN Reason: BG 50-70 responsive npo pt Stop: 12/11/24 09:13 Dextrose (Dextrose 50%-Water Inj 50 Ml Syringe) 50 ml IV Q15MIN PRN PRN Reason: BG <50 OR BG <70 & pt unresponsive Stop: 12/11/24 09:13 Glucagon (Glucagon Inj 1 Mg Vial) 1 mg IM Q15MIN PRN PRN Reason: BG <70, and no IV access Heparin Sodium (Porcine) (Heparin Sod Inj 5000 Unit/Ml Vial) 5,000 unit SC Q8H [facility] Stop: 11/25/24 13:59 Cefazolin Sodium/Dextrose (Ancef Ivpb) 1 gm in 50 mls @ 100 mls/hr IV Q8HR [facility] Stop: 11/18/24 08:55 Insulin Human Lispro (Insulin Lispro (Admelog) 1 Unit/0.01 Ml Unit) 0 unit SC Q6HR [facility]; Protocol Stop: 12/11/24 11:59 Morphine Sulfate (Morphine Sulf Inj 10 Mg/Ml Vial) 1 mg IVP Q4H PRN PRN Reason: PAIN SCALE 7-10 (Severe Stop: 11/16/24 08:50 Ondansetron HCl (Ondansetron Inj 2 Mg/Ml Inj 2 Ml) 4 mg IV Q6H PRN; Protocol PRN Reason: NAUSEA OR VOMITING Stop: 12/11/24 08:50 Sennosides (Senna Tablet) 1 tab PO QDAY PRN; Protocol PRN Reason: constipation Stop: 12/11/24 08:50 Discontinued Medications Clindamycin/Sodium Chloride (Cleocin/Ns Ivpb) 600 mg in 50 mls @ 100 mls/hr IV X1 ONE Stop: 11/11/24 07:25 Assessment & Plan Plan This Patient is a 83-year-old male with past medical history of CVA, CAD s/p stents, hypertension, type 2 diabetes, previous upper GI bleed, BPH presented due to swelling and pain in mid back due to wound/cellulits mid back. Patient was seen yesterday by Dr. Garcia, surgeon at his clinic and was sent to the ED this morning to be admitted for I&D. admitted for cellulitis with large abscess of mid back post I&D. #Cellulitis with large abscess of mid back post I&D ? Patient noticed the swelling since months ago which has been progressively increasing in size and pain. Failed antibiotic therapy outpatient. Denies fever chills. ? In the ED, patient received IV clindamycin x 1. ? General Surgery was consulted, Dr Garcia performed I&D without complication and remove purulent discharge per operative report ? 1 g IV cefazolin every 8 hourly ? Follow-up with culture results ? Pain control as needed ? Restarted diet carb consistent per surgery recommendations ? Patient will need home health upon discharge #Gait instability #Generalized weakness ? Patient is usually limited in immobilization and uses wheelchair if needed and can walk very limited due to weakness in his lower extremities. ?No active management ? Continue physical therapy at home #Essential hypertension ? Patient takes blood pressure medications including benazepril 40 mg once a day and labetalol 300 mg twice daily and amlodipine 5 mg twice daily ? Started lisinopril 40 mg, labetalol 300 mg twice daily and amlodipine 5 mg once only for now ? Resume home medications ? Monitor vitals #History of type 2 diabetes ? Patient uses insulin at home and reported to have uncontrolled blood sugars ? A1c 6.6 11/12 ? Current blood sugars 150s ? Insulin sliding scale ? Accu-Cheks with hypoglycemia protocol in place ? Stopped Lantus 10 units at night as BS are currently at goal #History of CAD post stents ? Patient follows up with Dr. Mendieta, tape folding machine operator as outpatient ?Takes aspirin Plavix and atorvastatin ? Resumed home medications #History of mood disorder ? Patient takes sertraline and low-dose aripiprazole ?Resume home medications #History of BPH ? Continue taking home finasteride and tamsulosin Health maintenance Diet: Carb consistent diet GI prophylaxis: Protonix DVT prophylaxis: Heparin CODE STATUS: Full code Disposition: Admitted for management and workup of cellulitis of mid back post I&D. Plan of care discussed with attending physician, Dr. Chandu Bui MD, PGY 2 Attending Provider Attestation/Addendum Patient seen and examined with resident physician Dr. Bui. Note reviewed, agree with findings and recommendations. Status post I&D of acute infected sebaceous cyst with Dr Garcia. Continue with IV antibiotics. Will be observed overnight and plan for discharge tomorrow. Plan of care discussed with the Karine at bedside.
[2024-11-11 09:33] LABS: Phosphorous 2.8 mg/dL (2.4-5.1)
--- NOTE | 2024-11-11 09:39 | PD.SUROPNT ---
Date of Procedure 11/11/24 Pre Op Diagnosis Cellulitis and abscess of back Post Op Diagnosis Cellulitis and abscess of back Procedure Incision and drainage of back abscess Findings Significant cellulitis with large abscess of mid back Procedure Description Patient brought into the operating room and spine position. After administration of monitored anesthesia care, patient was placed in right lateral decubitus position. His mid back was prepped and draped in standard surgical manner. After administration of local anesthesia an approximately 2 cm incision was made over the area of most fluctuance. Copious amount of foul-smelling purulent drainage encountered, cultures were obtained. The abscess cavity was evacuated. The cavity was washed and irrigated with Betadine mixed with peroxide and saline and further washed with warm saline. Hemostasis was adequate and satisfactory. The cavity was packed with wet-to-dry dressings. Patient tolerated the procedure well. He was placed in supine position. He was breathing spontaneously without difficulty and was transferred to postanesthesia care in stable condition. Instruments, needles and sponge counts were reported to be correct x 2. Anesthesia MAC and local Pathology / specimen Other (Cultures from the abscess cavity) Estimated Blood Loss 5 Condition Stable Disposition PACU Surgeon Michele Garcia MD Surgical Staff Operation Date: 11/11/24 09:30 <No data on this case meets the specified criteria>
--- NOTE | 2024-11-11 09:42 | SUR.PHASEII ---
pt received from OR in recovery bay 7. pt asleep but responds to voice, breathing unlabored on room air. v/s stable. pt dressing to back cdi. report received from Kal WILSON and Jim PAYNE.
[2024-11-11] MEDS: ceFAZolin/D5W 1 GM IVPB 1 GM/50 ML BAG IV ×3 (10:25→21:53)
--- NOTE | 2024-11-11 11:15 | SUR.PHASEII ---
Received report on pt. s/p surgery from Marcel WILSON. Pt. is resting, eyes closed, responds to verbal commands, VSS, very [place], pt.'s is at bedside. Dressing to back CDI.
[2024-11-11] MEDS: Lisinopril 20 MG TABLET 40 MG PO (12:23)
--- NOTE | 2024-11-11 14:56 | SUR.PHASEII ---
pt brief changed at this time.
--- NOTE | 2024-11-11 16:10 | SUR.PHASEII ---
pt awake and alert, breathing unlabored on room air. v/s stable. pt dressing to back cdi. report called to Satinder Rn. pt will be transferred to room at this time.
[2024-11-11] MEDS: INSULIN LISPRO (AdmeLOG) 1 UNIT/0.01 ML UNIT SC ×2 (17:54→20:51)
[2024-11-11] MEDS: HYDROcodone/APAP 5/325 TABLET 1 TAB PO (17:55)
[2024-11-11] MEDS: ATORVASTATIN CALCIUM 20 MG TABLET 40 MG PO (20:43)
[2024-11-11] MEDS: ASCORBIC ACID 250 MG TABLET 500 MG PO (20:43)
[2024-11-11] MEDS: SERTRALINE HCL 25 MG TABLET 100 MG PO (20:44)
[2024-11-11] MEDS: LABETALOL 100 MG TABLET 300 MG PO (20:45)
[2024-11-11] MEDS: TAMSULOSIN HCL 0.4 MG CAPSULE PO (20:45)
[2024-11-11] MEDS: DOCUSATE SOD 100 MG CAPSULE PO (20:45)
[2024-11-11] MEDS: ARIPIPRAZOLE 2 MG TABLET PO (20:46)
[2024-11-12] VITALS (8 sets, daily range): BP systolic 126–155; BP diastolic 55–85; PULSE 61–68; RESP 17–96; TEMP 36.3–36.6; O2SAT 94–97
[2024-11-12] MEDS: ceFAZolin/D5W 1 GM IVPB 1 GM/50 ML BAG IV ×2 (05:10→13:25)
[2024-11-12] MEDS: MORPHINE SULF INJ 10 MG/ML VIAL IVP (06:01)
[2024-11-12 06:02] LABS: Basophils % (Auto) 0 % (0-2.5); Eosinophils # (Auto) 0.3 Thou/mm3 (0.0-0.5); Eosinophils % (Auto) 4 % (0-10); Hematocrit 36.8 % (41.0-53.0); Immature Granulocytes % (Auto) 1 % (0-0); Immature Granulocytes Auto 0.05 Thou/mm3 (0.00-0.00); Lymphocytes # (Auto) 0.7 Thou/mm3 (1.0-4.8); Lymphocytes % (Auto) 10 % (10-50); Mean Corpuscular HGB Conc 35.3 g/dl (31.0-37.0); Mean Corpuscular Hemoglobin 30.8 pg (25.0-35.0); Mean Corpuscular Volume 87 fL (80-100); Monocytes # (Auto) 0.7 Thou/mm3 (0.0-0.8); Monocytes % (Auto) 9 % (0-12); Neutrophils # (Auto) 5.5 Thou/mm3 (1.8-7.7); Neutrophils % (Auto) 76 % (37-80); Nucleated Red Blood Cell % 0 /100 WBC (0); Platelet Count 165 Thou/mm3 (140-440); RDW Standard Deviation 41.2 fL (35.1-43.9); Red Blood Count 4.22 Miln/mm3 (4.50-5.90); White Blood Count 7.2 Thou/mm3 (3.8-10.6)
[2024-11-12 06:29] LABS: Alanine Aminotransferase 23 U/L (10-49); Albumin, Serum 3.8 gm/dL (3.4-4.8); Alkaline Phosphatase 172 U/L (46-116); Anion Gap 7 (7-16); Aspartate Amino Transferase 17 U/L (0-34); BUN/Creatinine Ratio 19 Ratio (12-20); Blood Urea Nitrogen 13 mg/dL (9-23); Calcium 8.7 mg/dL (8.3-10.6); Calcium (Corrected) 8.9 mg/dL (8.5-10.1); Carbon Dioxide 28.8 mMol/L (20.0-31.0); Chloride 107 mMol/L (98-107); Creatinine (Component) 0.7 mg/dL (0.6-1.3); Estimated Creatinine Clearance 82.6 mL/min (>60); Globulin 1.9 gm/dL (2.3-3.5); Glucose 203 mg/dL (74-106); Magnesium 1.7 mg/dL (1.6-2.6); Osmolality,Calculated 291 (275-295); Phosphorous 2.6 mg/dL (2.4-5.1); Potassium 3.6 mMol/L (3.4-5.1); Sodium 143 mMol/L (136-145); Total Protein 5.7 gm/dL (5.7-8.2); eGFR > 60 See Note
[2024-11-12] MEDS: INSULIN LISPRO (AdmeLOG) 1 UNIT/0.01 ML UNIT SC ×2 (07:30→11:21)
[2024-11-12] MEDS: DOCUSATE SOD 100 MG CAPSULE PO (08:12)
[2024-11-12] MEDS: ASPIRIN EC 81 MG TABEC PO (08:12)
[2024-11-12] MEDS: PANTOPRAZOLE 20 MG TABLET PO (08:12)
[2024-11-12] MEDS: FINASTERIDE 5 MG TABLET PO (08:12)
[2024-11-12] MEDS: FOLIC ACID 1 MG TABLET PO (08:12)
[2024-11-12] MEDS: ZINC SULFATE 220 MG CAPSULE PO (08:12)
[2024-11-12] MEDS: amLODIPine BESYLATE 5 MG TABLET PO (08:12)
[2024-11-12] MEDS: CLOPIDOGREL BISULFATE 75 MG TABLET PO (08:12)
[2024-11-12] MEDS: ASCORBIC ACID 250 MG TABLET 500 MG PO (08:12)
[2024-11-12] MEDS: Lisinopril 20 MG TABLET 40 MG PO (08:13)
[2024-11-12] MEDS: LABETALOL 100 MG TABLET 300 MG PO (08:13)
--- NOTE | 2024-11-12 12:25 | PD.SURPROG ---
Documentation for date of: 11/12/24 Subjective Subjective Narrative: Patient is seen and examined. His pain is improving Exam Vital Signs Temp Pulse Resp BP Pulse Ox O2 Del Method 97.7 F 63 18 126/55 L 97 Room Air 11/12/24 11:24 11/12/24 11:24 11/12/24 11:24 11/12/24 11:24 11/12/24 11:24 11/12/24 11:24 Constitutional Constitutional: no acute distress Routine Back/Spine/Pelvis Exam Comments: Cellulitis is improving. There is no significant drainage or bleeding from the wound Assessment & Plan Assessment Additional comments: Postop day #1 status post incision and drainage of back abscess Plan Dressings changed. Patient can be discharged on oral antibiotics for 1 week. Wound care as directed Procedures Procedures Incision and drainage of back abscess
--- NOTE | 2024-11-12 14:56 | ESDS_ITS ---
Planned Discharge Date 11/12/24 DS: Providers Provider Date of admission: 11/11/24 07:07 Primary care physician: Mary Schofield MD Admitting Provider: Arthur Anaya MD Attending Provider on Admission: Arthur Anaya MD Consults: 11/11/24 07:14 Consult to General Surgery Stat Comment: Consulting Provider: Michele Garcia 11/11/24 08:57 Referral Wound Care Routine Comment: Attending Provider on DC: Chuck Choudhary MD Discharging Provider: Chuck Choudhary MD DS: Diagnosis Problem List Completed Was Problem List Reviewed/Reconciled?: Yes Hospital Course Hospital Course Hospital course: This Patient is a 83-year-old male with past medical history of CVA, CAD s/p stents, hypertension, type 2 diabetes, previous upper GI bleed, BPH presented on 10/2424 due to swelling and pain in mid back due to wound/cellulitis with abscess formation. Patient's was present at the bedside in recovery room post op when the history was taken. She reported that patient had this initially seen in July which was initially tiny and slowly increased in size with formation of abscess and became extremely painful. Patient took antibiotics however zayra led to improve with them. In the ED, patient was slightly hypertensive, had regular pulse, afebrile and saturating well on room air. Labs were significant for normocytic anemia with hemoglobin at 13.3. CHEM panel was unremarkable with electrolytes within normal limits. Kidney functions were stable, Liver enzymes unremarkable. Surgery was consulted and patient was taken to the OR for I&D. During his stay patient's pain was well-controlled and further evaluation with general surgery revealed patient was stable to discharge to follow-up outpatient with wound care and to complete 1 week of antibiotic treatment. Patient also needs to see PCP in 1 week Problems addressed during this stay #Cellulitis with large abscess of mid back post I&D #Gait instability #Generalized weakness #Essential hypertension #History of type 2 diabetes #History of CAD post stents #History of mood disorder #History of BPH Plan: Patient can be discharged home with home health Patient to take vitamin C 50 mg twice a day Patient to take Bactrim 2 tablets twice a day for total of 7 days Patient to take zinc 220 mg capsules once a day Patient can continue all medications as previously prescribed Patient to follow-up with PCP in 1 to 2 weeks Patient to follow-up with general surgery in 1 week Thank you for allowing us to care for the patient during his time at [facility] I discussed patient's care with attending physician, Dr Chandu Choudhary PGY3 Status at Discharge Cognitive/behavioral status at discharge: Stable Functional status at discharge: wheelchair bound Overall status at discharge: patient is progressing back to baseline Time Spent with Patient Time attestation: Total time spent providing and/or coordinating discharge services: Time spent: Greater than 30 minutes Exam Vital Signs Temp Pulse Resp BP Pulse Ox O2 Del Method 97.7 F 63 18 126/55 L 97 Room Air 11/12/24 11:24 11/12/24 11:24 11/12/24 11:24 11/12/24 11:24 11/12/24 11:24 11/12/24 11:24 Narrative Exam GENERAL APPEARANCE:Elderly male in no acute distress. HEENT: NC, AT. MMM. EOMI, clear conjunctiva, oropharynx clear. NECK: Supple without lymphadenopathy. No stiffness or restricted ROM. HEART: Regular rate and regular rhythm, normal S1/S2, no m/r/g LUNGS: CTAB, moving air well. No crackles or wheezes are heard. ABDOMEN: Soft, nontender, nondistended with good bowel sounds heard. BACK: Status post wound with I&D EXTREMITIES: Without cyanosis, clubbing or edema. NEUROLOGICAL: Grossly nonfocal. Alert and oriented x 3, moving all 4 extremities. CN not formally tested but appear grossly intact. Skin: Warm and dry without any rash. Discharge Plan Plan Patient Disposition: Home w/HOME HEALTH Disposition Comment: Stable Care Plan Goals: Patient can be discharged home with home health Patient to take vitamin C 50 mg twice a day Patient to take Bactrim 2 tablets twice a day for total of 7 days Patient to take zinc 220 mg capsules once a day Patient can continue all medications as previously prescribed Patient to follow-up with PCP in 1 to 2 weeks Patient to follow-up with general surgery in 1 week Prescriptions/Referrals Prescriptions/Med Rec: New ascorbic acid (vitamin C) [Vitamin C] 250 mg Tablet 500 mg PO BID Qty: 60 0RF zinc sulfate 50 mg zinc (220 mg) Capsule 220 mg PO QDAY Qty: 30 0RF sulfamethoxazole-trimethoprim [Bactrim] 400-80 mg tablet 2 tab PO BID 7 Days Qty: 28 0RF Continued tamsulosin 0.4 mg capsule 0.4 mg PO QHS aspirin 81 mg tablet,delayed release (DR/EC) 81 mg PO QDAY aripiprazole [Abilify] 2 mg tablet 2 mg PO HS Ferrimin 150 456 mg (150 mg iron) tablet 456 mg PO QDAY finasteride 5 mg tablet 5 mg PO HS clopidogrel 75 mg Tablet 75 mg PO QDAY atorvastatin 40 mg Tablet 40 mg PO HS pantoprazole 20 mg tablet,delayed release (DR/EC) 20 mg PO QDAY Qty: 30 0RF benazepril 40 mg Tablet 40 mg PO QDAY folic acid 1 mg Tablet 1 mg PO QDAY labetalol 300 mg Tablet 300 mg PO BID sertraline 50 mg Tablet 100 mg PO HS Rx Instructions: 2 TABS PO HS nifedipine 60 mg Tablet Extended Release 60 mg PO QDAY insulin glargine [Basaglar KwikPen U-100 Insulin] 100 unit/mL (3 mL) insulin pen 16 unit SUBCUT .am prednisone 10 mg tablet 10 mg PO QDAY Qty: 10 0RF Rx Instructions: administer with food or milk Men's Multivitamin 200-60-600 mcg tablet 1 tab PO BID Patient Comments: chewable Probiotic 10 billion cell capsule 100 mmu cells PO .pm Discontinued sulfamethoxazole-trimethoprim 800-160 mg tablet 1 tab PO BID Patient Comments: TAKE 1 TABLET BY MOUTH TWICE A DAY Referrals: Mary Schofield MD [Primary Care Provider] - Patient/Caregiver Discharge Instructions Print Language: Ghanaian Activity Restrictions/Additional Instructions: May shower. Pack to wound with half-inch packing strip and cover with dry dressings daily. Follow-up with Dr Garcia in 1 week, please call [phone] for an appointment. Stand Alone Forms: Judy Award Info., Patient Portal Info Letter Discharge Order Discharge Orders: Discharge (Routine); Ordered 11/12/24 Ordered By: Chuck Choudhary Quality Discharge Quality Measures VTE prophylaxis MD Attestestation MD Attestation Patient seen and examined with resident physician Dr. Choudhary note reviewed, agree with findings and recommendations. Status post I&D of acute infected sebaceous cyst with Dr Garcia. Patient is going to be discharged home with home health care on p.o. antibiotics. Follow-up with Dr. Schofield, Dr. Garcai in 1 to 2 weeks. Plan of care discussed with the Karine at bedside.
--- NOTE | 2024-11-13 08:48 | PC.CC ---
Addendum entered by Aric Burrell RN 11/13/24 10:34: [facility] accepted the pt. [facility]ed [facility]. Start of care date with [facility] is Friday11/15/24. Original Note: No documentation from [facility] on pt. preference of HH agency. HH referral sent on [facility]. Awaiting responses. Pending Start of care date.
== END 2024-11-12 17:13 | disposition home health service (06) | DRG 603 ==
LOC: SERX 07:42 → SERHOLD 07:46 → S3NX 16:18
PROVIDERS: Nurse Practitioner Family; Student in an Organized Health Care Education/Training Program; Surgery; Admitting Provider Internal Medicine; Emergency Provider Emergency Medicine; PCP Internal Medicine; Visit Provider Internal Medicine
PROC: 0W9L0ZX Drainage of Lower Back, Open Approach, Diagnostic (ICD-10-PCS; principal; 2024-11-11 09:30)
DX: L02.212 Cutaneous abscess of back [any part, except buttock and flank] (principal); L03.312 Cellulitis of back [any part except buttock and flank]; E11.9 Type 2 diabetes mellitus without complications; N40.0 Benign prostatic hyperplasia without lower urinary tract symptoms; I10 Essential (primary) hypertension; I25.10 Atherosclerotic heart disease of native coronary artery without angina pectoris; D64.9 Anemia, unspecified; F39 Unspecified mood [affective] disorder; E78.00 Pure hypercholesterolemia, unspecified; R26.89 Other abnormalities of gait and mobility; Z86.73 Personal history of transient ischemic attack (TIA), and cerebral infarction without residual deficits; Z87.891 Personal history of nicotine dependence; Z95.5 Presence of coronary angioplasty implant and graft; Z90.49 Acquired absence of other specified parts of digestive tract; Z79.899 Other long term (current) drug therapy; Z79.82 Long term (current) use of aspirin; Z79.02 Long term (current) use of antithrombotics/antiplatelets; Z79.4 Long term (current) use of insulin
CPT/HCPCS: 36415; 80053; 83735; 84100; 85025; 87040; 87070; 87075; 87076; 87205; A4217; A4649; J0689; J1815; J2270; J2704; S0077; A9270; J0737

== ENCOUNTER → 2024-12-28 | Outpatient (CLI) | payer MEDICARE, OTHER, SELFPAY ==
[2024-12-28 16:00] LABS: Collection Type, Urine Clean Catch
[2024-12-28 16:43] LABS: Bacteria,Urine 2+; Bilirubin,Urine Negative (Negative); Blood,Urine 3+ (Negative); Culture Indicated,Urine Contaminated; Glucose, Urine Negative (Negative); Ketones,Urine Negative (Negative); Leukocyte Esterase,Urine Positive (Negative); Nitrite,Urine Negative (Negative); PH,Urine 6.5 (5.0-7.0); Protein,Urine 2+ (Neg - Trace); RBC,Urine 208 /hpf (0-3); Specific Gravity,Urine 1.022 (1.001-1.035); Squamous Epithelial Cell,Urine 12 /hpf (0-5); WBC,Urine 2570 /hpf (0-5)
[2024-12-28 16:48] LABS: Clarity,Urine Cloudy (Clear/Hazy); Color,Urine Lt Yellow (Lt Yel-Yel)
== END | disposition home or self-care (01) ==
LOC: SLDO 15:57
PROVIDERS: PCP Internal Medicine; Referring Provider Urology; Visit Provider Urology
DX: N39.0 Urinary tract infection, site not specified (principal)
CPT/HCPCS: 81001

== ENCOUNTER 2025-01-16 17:52 | Emergency (ER) | payer MEDICARE, OTHER, SELFPAY ==
[2025-01-16] VITALS (7 sets, daily range): BP systolic 125–139; BP diastolic 57–76; PULSE 53–78; RESP 15–22; TEMP 36.9–38.7; O2SAT 97–99; BMI 25.0
--- NOTE | 2025-01-16 18:07 | EKG_ITS ---
[facility] Test Date: 2025-01-16 Pat Name: ANNE MEZA Department: Room: - Gender: Male [employer] Custodian: : 1940 Requested By: ED Temporary Provider Order Number: [id number] Reading MD: ED Temporary Provider Measurements Intervals [place] Rate: 72 P: 11 DC: 166 QRS: -38 QRSD: 107 T: -11 QT: 414 QTc: 454 Interpretive Statements SINUS RHYTHM VOLTAGE CRITERIA FOR LVH [MEETS CRITERIA IN ONE OF: R(aVL), S(V1), R(V5), R(V5/V6)+S(V1)] POSSIBLE ANTERIOR MYOCARDIAL INFARCTION , OF INDETERMINATE AGE [30 ms Q WAVE IN V3/V4, OR R < 0.2 mV IN V4] INFERIOR MYOCARDIAL INFARCTION , OF INDETERMINATE AGE [40+ ms Q WAVE AND/OR ST/T ABNORMALITY IN II/aVF] Compared to ECG 06/25/2023 07:34:44 Myocardial infarct finding now present Incomplete right bundle-branch block no longer present ST (T wave) deviation no longer present /store/S0/[id number]/[id number].pdf
--- NOTE | 2025-01-16 18:42 | PD.EDFEVER ---
ED Fever RME/HPI General Chief Complaint: Fever Stated Complaint: WEAKNESS Time Seen by Provider: 01/16/25 18:34 Arrival date/time: 01/16/25 17:52 RME / HPI RME / HPI Narrative: Dr. Wing?s Main ED Evaluation: 84yo male with a history of CVA, CAD s/p stents, HTN, DM, BPH BIBA from home presents to the ED for a fever. Per EMS, patient had a fever of 101.6 at home today and was more confused than normal, so they sent him over for evaluation. Patient is awake and alert to self, but is slightly confused, and is unable to provide any history. Per EMS, patient is a DNR, but does not have a POLST. Related Data Home Medications ?Medication ?Instructions ?Recorded ?Confirmed benazepril 40 mg tablet 40 mg PO QDAY 01/27/19 11/11/24 folic acid 1 mg tablet 1 mg PO QDAY 01/27/19 11/11/24 labetalol 300 mg tablet 300 mg PO BID 01/27/19 11/11/24 sertraline 50 mg tablet 100 mg PO HS 01/27/19 11/11/24 clopidogrel 75 mg tablet 75 mg PO QDAY 01/12/20 11/11/24 atorvastatin 40 mg tablet 40 mg PO HS 09/02/20 11/11/24 tamsulosin 0.4 mg capsule 0.4 mg PO QHS 02/08/21 11/11/24 aripiprazole 2 mg tablet (Abilify) 2 mg PO HS 07/30/22 11/11/24 aspirin 81 mg tablet,delayed 81 mg PO QDAY 07/30/22 11/11/24 release ferrous fumarate 456 mg (150 mg 456 mg PO QDAY 07/30/22 11/11/24 iron) tablet (Ferrimin 150) finasteride 5 mg tablet 5 mg PO HS 06/02/23 11/11/24 insulin glargine 100 unit/mL (3 16 unit subcut .am 06/26/23 11/11/24 mL) subcutaneous pen (Basaglar KwikPen U-100 Insulin) nifedipine 60 mg tablet,extended 60 mg PO QDAY 06/26/23 11/11/24 release Lactobacillus acidophilus 10 100 mmu cells PO .pm 11/11/24 11/11/24 billion cell capsule (Probiotic) nibmikge-bxo-iizda acid 200 1 tab PO BID 11/11/24 11/11/24 mcg-vit K1 60 mcg-lycopene 600 mcg tablet (Men's Multivitamin) Previous Rx's ?Medication ?Instructions ?Recorded pantoprazole 20 mg tablet,delayed 20 mg PO QDAY #30 tabs 09/08/20 release prednisone 10 mg tablet 10 mg PO QDAY #10 tabs 07/01/23 ascorbic acid (vitamin C) 250 mg 500 mg (2 x 250 mg) PO BID #60 tabs 11/12/24 tablet (Vitamin C) zinc sulfate 50 mg zinc (220 mg) 220 mg (4.4 x 50 mg zinc (220 mg)) 11/12/24 capsule PO QDAY #30 caps ciprofloxacin HCl 500 mg tablet 500 mg PO Q12H #14 tabs 01/16/25 (Cipro) Allergies Allergy/AdvReac Type Severity Reaction Status Date / Time thimerosal Allergy Intermediate Rash Verified 11/11/24 06:34 amoxicillin Allergy Verified 01/16/25 18:33 Review of Systems Review of Systems Systems Reviewed: All systems reviewed, normal except as documented Past Medical History Past Medical History NEUROLOGIC: Positive Neurological Disorders and Cerebrovascular Accident; Negative Seizures CARDIAC: Positive Cardiac Disorders, Hypercholesterolemia and Hypertension; Negative Congestive Heart Failure RESPIRATORY: Negative Chronic Obstructive Pulmonary Disease (COPD) or Asthma GASTROINTESTINAL: Positive Gastrointestinal Disorders, Gastrointestinal Bleed and Ulcer GENITOURINARY: Positive Genitourinary Disorders and Benign Prostatic Hyperplasia; Negative Renal Disease MUSCULOSKELETAL: Positive Musculoskeletal Disorders and Arthritis ENT: Positive Cataracts ENDOCRINE: Positive Endocrine Disorders and Diabetes Mellitus Type 2; Negative Diabetes Mellitus Type 1 HEMATOLOGIC: Negative Blood Disorders or Sickle Cell Disease OTHER HISTORY: Positive Falls, Chicken Pox, Measles, Mumps and Pertussis; Negative Autoimmune Disease, Shingles, Blood Transfusions, Blood Transfusion Reaction, Anesthesia Reactions or Cancer Family History FAMILY HISTORY: Positive Family Gastrointestinal Problems, Family Cancer and Family Surgery; Negative Family Psychiatric Problems, Family Respiratory Disorders, Family Cardiac Disorders or Family Anesthesia Reaction Surgical History SURGICAL: Positive Coronary Stent, Eye Surgery, Throat Surgery, Transurethral Resection and Vasectomy Social History SMOKING STATUS: Unknown if ever smoked SECOND HAND EXPOSURE: No Physical Exam Narrative Physical exam: GEN. APPEARANCE: The patient is alert awake oriented to self in no distress, appears weak. VITALS: All vitals were reviewed and the pulse ox is 97% on room air which is normal according to my interpretation. HEENT: Normocephalic, atraumatic. Pupils are equal and reactive. Oral mucosa is moist. Patent Nares NECK: Supple, nontender, no thyromegaly, no meningismus, no JVD CHEST: Symmetrical, atraumatic, and with equal expansion , Nontender on palpation no deformity and no crepitus. CARDIOVASCULAR: Heart regular rhythm no murmur or gallop rub or extra beats. LUNGS: Clear to auscultation bilaterally with symmetrical chest rise. No laboring tachypnea or wheezing. No intercostal subcostal retraction. No rales and no rhonchi. ABDOMEN: Soft, flat, nontender to palpation, no guarding or rebound tenderness. There are no abnormal masses palpated. Active and normal bowel sounds. EXTREMITIES: Nontender. No edema. No cyanosis. Patient is able to move all 4 extremities well, with full ROM and good CSM. SKIN: Warm and dry, well-healed lesion to the left lateral thoracic spine, has a superficial pressure ulcer to the sacrum. NEURO: Patient is awake, alert, oriented to self. Baseline weakness. Answers questions to voice. PSYCHIATRIC: Patient is in normal mood and affect. Course Quality Measures none Orders Category Date Time Status Bedside COVID-19 Antigen Test NOW Care 01/16/25 18:43 Active Bedside Influenza A&B Antigen Test NOW Care 01/16/25 18:43 Completed EKG (ED ONLY) *Do not use* NOW Care 01/16/25 18:07 Completed In and Out Catheter X1 Care 01/16/25 18:48 Active EKG (ED Only) Stat Exams 01/16/25 18:07 Draft CBC Stat Lab 01/16/25 18:10 Completed CMP [Comprehensive Metabolic Panel] Stat Lab 01/16/25 18:10 Completed Lactate (Lactic Acid) Stat Lab 01/16/25 18:10 Completed Procalcitonin Stat Lab 01/16/25 18:10 Completed UA, C/S IF [Urinalysis, C/S if Indicated] Stat Lab 01/16/25 18:52 Completed Urine Culture Stat Lab 01/16/25 18:52 Received Acetaminophen Tab [Tylenol Tab] Med 01/16/25 18:43 Discontinued 650 mg PO X1 ONE CIPROFLOXACIN/D5w 400 MG IVPB [Cipro Ivpb] Med 01/16/25 20:52 Active 400 mg in 200 ml IV NOW Ringers Lactated 1000 ml [Lactated Ringers] 1,000 ml Med 01/16/25 18:43 Discontinued IV 999 mls/hr Vital Signs Vital signs: Vital Signs Temperature 101.2 F H 01/16/25 18:01 Pulse Rate 76 01/16/25 18:01 Respiratory Rate 22 H 01/16/25 18:01 Blood Pressure 133/76 H 01/16/25 18:01 Pulse Oximetry (%) 98 01/16/25 18:01 Oxygen Delivery Method Nasal Cannula 01/16/25 18:01 Oxygen Flow Rate 6 01/16/25 18:01 Fever MDM Narrative MDM Narrative:: Scribe Attestation: 01/16/25 - Stephanie, Sveta Pedersen am scribing for and in the presence of Dr. Wing. Presents with fever and weakness. Vital signs and exam as above. Concern for urinary tract infection, metabolic disturbance, among others. Patient without any chest pain, not hypoxic, less likely pneumonia, ACS arrhythmia. EKG without evidence of ischemia or arrhythmia. Labs notable for mild hyperbilirubinemia T. bili 2, mild transaminitis however patient without any abdominal pain. Patient also has a urinary tract infection. Provided patient with antibiotics. Will discharge with a prescription for antibiotics. Patient is not septic at this time. Patient data External records reviewed:: [facility] previous records (Per chart review, patient was admitted here on 11/11/24 for abscess of skin or subcutaneous tissue.) and EMS form Clinical information provided by:: EMS Social determinants that could affect healthcare access:: none Patient has the following chronic illnesses:: CVA, CAD s/p stents, HTN, DM, BPH How is presenting disease/condition affected by chronic disease/condition?: uneffected by Evaluation data The following diagnostics were reviewed and interpreted by me:: lab results and EKG tracing(s) Lab and/or radiology exams considered but not ordered:: none Interpretation Summary: WBC 13.7, Glucose 244, Lactic Acid normal, Procalcitonin normal. UA shows 1+ protein, positive leukocyte esterase, 15 RBCs, 1352 WBCs, and 3+ bacteria. COVID/Influenza negative. EKG done at 1808, NSR, rate of 72, normal intervals, nonspecific ST-T changes, no acute ischemia, according to my interpretation. Medications / Prescriptions Medications or Prescriptions considered but not ordered:: none Medication administrations:: Medication Administration History Ciprofloxacin/Dextrose (Cipro Ivpb) 400 mg in 200 mls @ 200 mls/hr IV NOW ONE Stop: 01/16/25 21:51 Discontinued Medications Acetaminophen (Acetaminophen 325 Mg Tablet) 650 mg PO X1 ONE Stop: 01/16/25 18:44 Last Admin: 01/16/25 18:59 Dose: 650 mg Documented By: EF Lactated Ringer's (Lactated Ringers) 1,000 mls @ 999 mls/hr IV .Q1H1M ONE Stop: 01/16/25 19:43 Last Infusion: 01/16/25 20:00 Dose: Infused Documented By: Admin: 01/16/25 18:59 Dose: 999 mls/hr Documented By: EF see above Consultations Consultation(s) initiated? (list below): No Diagnosis Fever Differential Diagnosis: viral infection, influenza and other (COVID, UTI, dehydration, other metabolic disturbance) Most likely diagnosis given after review of the tests above:: see clinical impression below Admission Indicated Admission indicated?: not indicated Admission Request Was there a request for admission?: No Disposition Plan Disposition Plan: Discharge Discharge Attestation Discharge Attestation: The patient and all family members were given an opportunity to ask questions and understood the discharge instructions. Discharge instructions specifically effects, indications for sooner follow up or return to the emergency department, and the expected course of current diagnosis. Patient condition: Stable Discharge Plan Plan Patient Disposition: Home w/HOME HEALTH Prescriptions/Referrals Prescriptions/Med Rec: New ciprofloxacin HCl [Cipro] 500 mg tablet 500 mg PO Q12H Qty: 14 0RF No Action tamsulosin 0.4 mg capsule 0.4 mg PO QHS aspirin 81 mg tablet,delayed release (DR/EC) 81 mg PO QDAY aripiprazole [Abilify] 2 mg tablet 2 mg PO HS Ferrimin 150 456 mg (150 mg iron) tablet 456 mg PO QDAY finasteride 5 mg tablet 5 mg PO HS clopidogrel 75 mg Tablet 75 mg PO QDAY atorvastatin 40 mg Tablet 40 mg PO HS pantoprazole 20 mg tablet,delayed release (DR/EC) 20 mg PO QDAY Qty: 30 0RF benazepril 40 mg Tablet 40 mg PO QDAY folic acid 1 mg Tablet 1 mg PO QDAY labetalol 300 mg Tablet 300 mg PO BID sertraline 50 mg Tablet 100 mg PO HS Rx Instructions: 2 TABS PO HS nifedipine 60 mg Tablet Extended Release 60 mg PO QDAY insulin glargine [Basaglar KwikPen U-100 Insulin] 100 unit/mL (3 mL) insulin pen 16 unit SUBCUT .am prednisone 10 mg tablet 10 mg PO QDAY Qty: 10 0RF Rx Instructions: administer with food or milk Men's Multivitamin 200-60-600 mcg tablet 1 tab PO BID Patient Comments: chewable Probiotic 10 billion cell capsule 100 mmu cells PO .pm ascorbic acid (vitamin C) [Vitamin C] 250 mg Tablet 500 mg PO BID Qty: 60 0RF zinc sulfate 50 mg zinc (220 mg) Capsule 220 mg PO QDAY Qty: 30 0RF Referrals: No Primary/Family,Physician [Primary Care Provider] - In 1 week Problem List Clinical Impression: Urinary tract infection Patient/Caregiver Discharge Instructions Education Materials: Urinary Tract Infections in Men Print Language: Vietnamese Stand Alone Forms: Judy Award Info., Patient Portal Info Letter
[2025-01-16 18:50] LABS: Lactate (Lactic Acid) 1.7 mMol/L (0.4-2.0)
[2025-01-16 18:53] LABS: Basophils % (Auto) 0 % (0-2.5); Eosinophils # (Auto) 0.1 Thou/mm3 (0.0-0.5); Eosinophils % (Auto) 1 % (0-10); Hematocrit 33.2 % (41.0-53.0); Hemoglobin 11.9 g/dL (13.5-16.0); Immature Granulocytes % (Auto) 1 % (0-0); Immature Granulocytes Auto 0.07 Thou/mm3 (0.00-0.00); Lymphocytes # (Auto) 0.2 Thou/mm3 (1.0-4.8); Lymphocytes % (Auto) 2 % (10-50); Mean Corpuscular HGB Conc 35.8 g/dl (31.0-37.0); Mean Corpuscular Hemoglobin 30.1 pg (25.0-35.0); Mean Corpuscular Volume 84 fL (80-100); Monocytes # (Auto) 0.8 Thou/mm3 (0.0-0.8); Monocytes % (Auto) 6 % (0-12); Neutrophils # (Auto) 12.5 Thou/mm3 (1.8-7.7); Neutrophils % (Auto) 91 % (37-80); Nucleated Red Blood Cell % 0 /100 WBC (0); Platelet Count 203 Thou/mm3 (140-440); RDW Standard Deviation 42.5 fL (35.1-43.9); Red Blood Count 3.96 Miln/mm3 (4.50-5.90); White Blood Count 13.7 Thou/mm3 (3.8-10.6)
[2025-01-16] MEDS: ACETAMINOPHEN 325 MG TABLET 650 MG PO (18:59)
[2025-01-16] MEDS: RINGERS LACTATED 1000 ML 1,000 ML 999 ML IV (18:59)
[2025-01-16 19:18] LABS: Alanine Aminotransferase 61 U/L (10-49); Albumin, Serum 3.5 gm/dL (3.4-4.8); Albumin/Globulin Ratio 2.3 (1.2-2.2); Alkaline Phosphatase 183 U/L (46-116); Anion Gap 8 (7-16); Aspartate Amino Transferase 56 U/L (0-34); BUN/Creatinine Ratio 22 Ratio (12-20); Blood Urea Nitrogen 13 mg/dL (9-23); Calcium 8.7 mg/dL (8.3-10.6); Calcium (Corrected) 9.1 mg/dL (8.5-10.1); Carbon Dioxide 27.6 mMol/L (20.0-31.0); Chloride 107 mMol/L (98-107); Creatinine (Component) 0.6 mg/dL (0.6-1.3); Estimated Creatinine Clearance 87.2 mL/min (>60); Globulin 1.5 gm/dL (2.3-3.5); Glucose 244 mg/dL (74-106); Osmolality,Calculated 293 (275-295); Potassium 3.4 mMol/L (3.4-5.1); Procalcitonin 0.19 ng/ml (0.0-0.49); Sodium 143 mMol/L (136-145); eGFR > 60 See Note
[2025-01-16 20:24] LABS: Collection Type, Urine Catheter
[2025-01-16 20:31] LABS: Amorphous Crystals,Urine Present (Absent); Bacteria,Urine 3+; Bilirubin,Urine Negative (Negative); Blood,Urine 2+ (Negative); Clarity,Urine Turbid (Clear/Hazy); Color,Urine Amber (Lt Yel-Yel); Culture Indicated,Urine Yes; Glucose, Urine Negative (Negative); Ketones,Urine Negative (Negative); Leukocyte Esterase,Urine Positive (Negative); Nitrite,Urine Negative (Negative); Protein,Urine 1+ (Neg - Trace); RBC,Urine 15 /hpf (0-3); Specific Gravity,Urine 1.014 (1.001-1.035); Squamous Epithelial Cell,Urine 4 /hpf (0-5); Urobilinogen,Urine Negative mg/dL (0.0-1.0); WBC,Urine 1352 /hpf (0-5)
[2025-01-16] MEDS: CIPROFLOXACIN/D5w 400 MG IVPB 400 MG/200 ML BAG 200 MG IV (21:04)
--- NOTE | 2025-01-27 15:21 | PC.NURSE ---
I CALLED PATIENT CELL TO INFORM HIM THAT ABX WAS CHANGED DUE TO URINE CULTURE RESULTS. CALLED BACK. AWARE THAT ABX WAS CALLED INTO [facility]. HAVE PT START NEW ABX AND FOLLOW UP WITH PMD TO MAKE SURE HE IS IMPROVING. VERBALIZED UNDERSTANDING.
== END 2025-01-16 22:18 | disposition home or self-care (01) ==
PROVIDERS: Emergency Provider Emergency Medicine
DX: N39.0 Urinary tract infection, site not specified (principal); I25.2 Old myocardial infarction; N40.0 Benign prostatic hyperplasia without lower urinary tract symptoms; I10 Essential (primary) hypertension; E11.9 Type 2 diabetes mellitus without complications; I25.10 Atherosclerotic heart disease of native coronary artery without angina pectoris; Z66 Do not resuscitate
CPT/HCPCS: 51701; 36415; 80053; 81001; 83605; 84145; 85025; 87077; 87086; 87186; 87400; 87811; 93005; 96361; 96365; 99284; J0744; J7120; A9270

== ENCOUNTER → 2025-01-27 | Outpatient (CLI) | payer MEDICARE, OTHER, SELFPAY ==
[2025-01-27 16:40] LABS: Basophils # (Auto) 0.0 Thou/mm3 (0.0-0.2); Basophils % (Auto) 0 % (0-2.5); Eosinophils # (Auto) 0.3 Thou/mm3 (0.0-0.5); Eosinophils % (Auto) 4 % (0-10); Hematocrit 32.0 % (41.0-53.0); Hemoglobin 11.0 g/dL (13.5-16.0); Immature Granulocytes Auto 0.05 Thou/mm3 (0.00-0.00); Lymphocytes # (Auto) 0.8 Thou/mm3 (1.0-4.8); Lymphocytes % (Auto) 11 % (10-50); Mean Corpuscular HGB Conc 34.4 g/dl (31.0-37.0); Mean Corpuscular Hemoglobin 29.8 pg (25.0-35.0); Mean Corpuscular Volume 87 fL (80-100); Monocytes # (Auto) 0.5 Thou/mm3 (0.0-0.8); Monocytes % (Auto) 7 % (0-12); Neutrophils # (Auto) 5.2 Thou/mm3 (1.8-7.7); Neutrophils % (Auto) 76 % (37-80); Nucleated Red Blood Cell # 0.00 Thou/mm3 (0.00-0.00); Nucleated Red Blood Cell % 0 /100 WBC (0); Platelet Count 233 Thou/mm3 (140-440); RDW Standard Deviation 45.8 fL (35.1-43.9); Red Blood Count 3.69 Miln/mm3 (4.50-5.90); White Blood Count 6.8 Thou/mm3 (3.8-10.6)
[2025-01-27 16:44] LABS: Alanine Aminotransferase 58 U/L (10-49); Albumin, Serum 3.1 gm/dL (3.4-4.8); Albumin/Globulin Ratio 2.1 (1.2-2.2); Alkaline Phosphatase 157 U/L (46-116); Anion Gap 9 (7-16); Aspartate Amino Transferase 36 U/L (0-34); BUN/Creatinine Ratio 18 Ratio (12-20); Bilirubin,Total 1.2 mg/dL (0.3-1.2); Blood Urea Nitrogen 11 mg/dL (9-23); Calcium 8.3 mg/dL (8.3-10.6); Calcium (Corrected) 9.0 mg/dL (8.5-10.1); Carbon Dioxide 30.0 mMol/L (20.0-31.0); Chloride 108 mMol/L (98-107); Creatinine (Component) 0.6 mg/dL (0.6-1.3); Globulin 1.5 gm/dL (2.3-3.5); Glucose 186 mg/dL (74-106); Osmolality,Calculated 296 (275-295); Potassium 3.2 mMol/L (3.4-5.1); Sodium 147 mMol/L (136-145); Total Protein 4.6 gm/dL (5.7-8.2); eGFR > 60 See Note
== END | disposition home or self-care (01) ==
PROVIDERS: PCP Internal Medicine; Referring Provider Internal Medicine; Visit Provider Internal Medicine
DX: R19.7 Diarrhea, unspecified (principal)
CPT/HCPCS: 36415; 80053; 85025

== ENCOUNTER → 2025-02-23 | Outpatient (CLI) | payer MEDICARE, OTHER, SELFPAY ==
[2025-02-23 09:02] LABS: Basophils # (Auto) 0.0 Thou/mm3 (0.0-0.2); Basophils % (Auto) 0 % (0-2.5); Eosinophils # (Auto) 0.2 Thou/mm3 (0.0-0.5); Eosinophils % (Auto) 4 % (0-10); Hematocrit 38.4 % (41.0-53.0); Hemoglobin 13.1 g/dL (13.5-16.0); Immature Granulocytes Auto 0.05 Thou/mm3 (0.00-0.00); Lymphocytes # (Auto) 0.8 Thou/mm3 (1.0-4.8); Lymphocytes % (Auto) 13 % (10-50); Mean Corpuscular HGB Conc 34.1 g/dl (31.0-37.0); Mean Corpuscular Hemoglobin 30.3 pg (25.0-35.0); Mean Corpuscular Volume 89 fL (80-100); Monocytes # (Auto) 0.5 Thou/mm3 (0.0-0.8); Monocytes % (Auto) 8 % (0-12); Neutrophils # (Auto) 4.7 Thou/mm3 (1.8-7.7); Neutrophils % (Auto) 74 % (37-80); Nucleated Red Blood Cell # 0.00 Thou/mm3 (0.00-0.00); Nucleated Red Blood Cell % 0 /100 WBC (0); Platelet Count 151 Thou/mm3 (140-440); RDW Standard Deviation 44.7 fL (35.1-43.9); Red Blood Count 4.32 Miln/mm3 (4.50-5.90); White Blood Count 6.3 Thou/mm3 (3.8-10.6)
[2025-02-23 09:18] LABS: Anion Gap 11 (7-16); BUN/Creatinine Ratio 22 Ratio (12-20); Blood Urea Nitrogen 13 mg/dL (9-23); Calcium 8.9 mg/dL (8.3-10.6); Carbon Dioxide 31.1 mMol/L (20.0-31.0); Cardiac Risk Estimate 3.4 RATIO (4.0-6.7); Chloride 109 mMol/L (98-107); Cholesterol 133 mg/dL (132-200); Creatinine (Component) 0.6 mg/dL (0.6-1.3); Glucose 179 mg/dL (74-106); HDL Cholesterol 39 mg/dL (40-60); LDL Cholesterol,Calculated 72 mg/dL (0-130); Osmolality,Calculated 303 (275-295); Phosphorous 3.3 mg/dL (2.4-5.1); Potassium 3.3 mMol/L (3.4-5.1); Sodium 151 mMol/L (136-145); Thyroid Stimulating Hormone 2.55 uIU/mL (0.55-4.78); Triglycerides 110 mg/dL (30-150); eGFR > 60 See Note
[2025-02-23 09:27] LABS: Glucose Estimated Average 151 mg/dL (80-131); Hemoglobin A1C 6.9 % Hgb (4.8-6.0)
== END | disposition home or self-care (01) ==
LOC: SLDO 07:45
PROVIDERS: Referring Provider Internal Medicine; Visit Provider Internal Medicine
DX: E11.9 Type 2 diabetes mellitus without complications (principal); I10 Essential (primary) hypertension; E78.5 Hyperlipidemia, unspecified
CPT/HCPCS: 36415; 80048; 80061; 83036; 84100; 84443; 85025

== ENCOUNTER → 2025-02-24 | Outpatient (CLI) | payer MEDICARE, OTHER, SELFPAY ==
[2025-02-24 08:43] LABS: Collection Type, Urine Clean Catch
[2025-02-24 09:45] LABS: Creatinine MALB Rnd Ur 50 mg/dL (30-125); Microalbumin Creat Ratio 184 mg/gCrea (<30); Microalbumin, Random Urine 92 mg/L (0-300)
[2025-02-24 13:17] LABS: Bacteria,Urine Rare; Bilirubin,Urine Negative (Negative); Blood,Urine Negative (Negative); Color,Urine Yellow (Lt Yel-Yel); Glucose, Urine Negative (Negative); Ketones,Urine Negative (Negative); Leukocyte Esterase,Urine Positive (Negative); Nitrite,Urine Negative (Negative); PH,Urine 6.0 (5.0-7.0); Protein,Urine Trace (Neg - Trace); RBC,Urine 5 /hpf (0-3); Specific Gravity,Urine 1.016 (1.001-1.035); Squamous Epithelial Cell,Urine 2 /hpf (0-5); Urobilinogen,Urine Negative mg/dL (0.0-1.0); WBC,Urine 53 /hpf (0-5)
[2025-02-24 13:36] LABS: Clarity,Urine Hazy (Clear/Hazy)
== END | disposition home or self-care (01) ==
LOC: SLDO 08:29
PROVIDERS: Referring Provider Internal Medicine; Visit Provider Internal Medicine
DX: E11.9 Type 2 diabetes mellitus without complications (principal); I10 Essential (primary) hypertension; E78.5 Hyperlipidemia, unspecified
CPT/HCPCS: 81001; 82043; 82570

== ENCOUNTER → 2025-06-08 | Outpatient (CLI) | payer MEDICARE, OTHER, SELFPAY ==
[2025-06-08 09:52] LABS: Alanine Aminotransferase 32 U/L (10-49); Albumin, Serum 4.4 gm/dL (3.4-4.8); Alkaline Phosphatase 161 U/L (46-116); Anion Gap 11 (7-16); Aspartate Amino Transferase 31 U/L (0-34); BUN/Creatinine Ratio 16 Ratio (12-20); Bilirubin,Direct 0.5 mg/dL (0.0-0.3); Bilirubin,Total 1.5 mg/dL (0.3-1.2); Blood Urea Nitrogen 13 mg/dL (9-23); Calcium 9.5 mg/dL (8.3-10.6); Carbon Dioxide 29.3 mMol/L (20.0-31.0); Chloride 110 mMol/L (98-107); Creatinine (Component) 0.8 mg/dL (0.6-1.3); Glucose 90 mg/dL (74-106); Osmolality,Calculated 298 (275-295); Phosphorous 4.1 mg/dL (2.4-5.1); Potassium 3.2 mMol/L (3.4-5.1); Sodium 150 mMol/L (136-145); Total Protein 6.0 gm/dL (5.7-8.2); eGFR > 60 See Note
[2025-06-08 10:04] LABS: Glucose Estimated Average 126 mg/dL (80-131); Hemoglobin A1C 6.0 % Hgb (4.8-6.0)
[2025-06-08 13:44] LABS: Collection Type, Urine Clean Catch
[2025-06-08 14:50] LABS: Bacteria,Urine 2+; Bilirubin,Urine Negative (Negative); Blood,Urine 1+ (Negative); Color,Urine Yellow (Lt Yel-Yel); Glucose, Urine Negative (Negative); Hyaline Casts,Urine < 1 /hpf (0-1); Ketones,Urine Trace (Negative); Leukocyte Esterase,Urine Positive (Negative); Nitrite,Urine Negative (Negative); PH,Urine 6.0 (5.0-7.0); Protein,Urine 1+ (Neg - Trace); RBC,Urine 29 /hpf (0-3); Specific Gravity,Urine 1.023 (1.001-1.035); Squamous Epithelial Cell,Urine 3 /hpf (0-5); Urobilinogen,Urine 3.0 mg/dL (0.0-1.0); WBC,Urine 1256 /hpf (0-5)
[2025-06-08 14:57] LABS: Clarity,Urine Cloudy (Clear/Hazy); Culture Indicated,Urine Yes
== END | disposition home or self-care (01) ==
LOC: COPL 08:18
PROVIDERS: PCP Internal Medicine; Referring Provider Internal Medicine; Visit Provider Internal Medicine
DX: E03.9 Hypothyroidism, unspecified (principal); E11.9 Type 2 diabetes mellitus without complications; I10 Essential (primary) hypertension
CPT/HCPCS: 36415; 80048; 80076; 81001; 83036; 84100; 87077; 87086; 87186